=== PATIENT | female | born 1945 | race Caucasian/White ===

== ENCOUNTER 2023-05-21 10:12 | Emergency (ER) | payer MEDICARE, OTHER, SELFPAY ==
[2023-05-21] VITALS (17 sets, daily range): BP systolic 88–154; BP diastolic 53–104; BMI 28.2
[2023-05-21 10:38] LABS: % Basophils 1.1 % (0-2); % Eosinophils 6.5 % (0-6); % Immature Granulocytes 0.2 % (0-0.5); % Lymphocytes 21.7 % (20.5-51.1); % Monocytes 13.9 % (1.7-9.3); % Neutrophils 56.6 % (42.2-75.2); Absolute Basophils 0.1 10^3/uL (0-0.2); Absolute Eosinophils 0.3 10^3/uL (0-0.7); Absolute Monocytes 0.6 10^3/uL (0.1-0.6); Absolute Neutrophils 2.5 10^3/uL (1.4-6.5); Hemoglobin 12.4 g/dL (12.0-16.0); Mean Corp Hgb Conc. 34.4 g/dL (33.0-37.0); Mean Corpuscular Volume 95.7 fL (81.0-99.0); Mean Platelet Volume 9.3 fL (7.4-10.4); Nucleated Red Blood Cells % 0 %; Platelet Count 227 10^3/uL (130-400); Red Blood Cell Count 3.76 10^6/uL (4.20-5.40); Red Cell Dist. Width 12.6 % (11.5-14.5); White Blood Cell Count 4.5 10^3/uL (4.8-10.8)
[2023-05-21 11:00] LABS: Troponin I < 0.012 ng/ml
[2023-05-21 11:02] LABS: ALT (SGPT) 32 U/L (0-35); AST (SGOT) 32 U/L (14-36); Albumin 4.5 g/dl (3.5-5.0); Alkaline Phosphatase 88 U/L (38-126); Blood Urea Nitrogen 31 mg/dl (7-17); Calcium 9.3 mg/dl (8.4-10.2); Carbon Dioxide 27 mmol/L (22-30); Chloride 101 mmol/L (98-107); Glucose 109 mg/dl (70-99); Potassium 4.5 mmol/L (3.5-5.1); Sodium 134 mmol/L (135-145); Total Bilirubin 0.9 mg/dl (0.2-1.3); Total Protein 7.1 g/dl (6.3-8.2); eGFR 36.12
--- NOTE | 2023-05-21 11:55 | ED.GENMED ---
History of Present Illness
<Linda Acevedo PA-C - Last Filed: 05/21/23 15:07>
General
Chief Complaint: Heart Rate Problem
Source: patient
Exam Limitations: none
Time Seen by Provider: 05/21/23 11:32
Nursing documentation reviewed up to this point in time: agreed with
Travel History
Have you had any contact with someone who has COVID-19?: No
Do you have any symptoms of coronavirus? Fever > 100 degrees, chills, cough, shortness of breath, sore throat, loss of taste or smell, muscle aches, or headache?: No
History of Present Illness
History of Present Illness:
77 y/o F with h/o PAF on xarelto, anxiety, HF with preserved ef
here with palpitations notice dlas tnight, subtle
then this morning pt says her hr is higher htndaniel gonzáles (50) and was 80s today and felt irregular and her BP is up
she feels c/w previous ep[isodes of afib
mild lightheadedness with standing
mild WOODALL
no cp
no edema
requesting cardioversion
Past History
<Linda Acevedo PA-C - Last Filed: 05/21/23 15:07>
Past History
ED Past Medical History: Arrthythmia, CHF and HTN
Social History
Tobacco: Non-smoker
Alcohol: None
Review of Systems
<MICHELLE Hernandez Last Filed: 05/21/23 15:07>
Review of Systems
Allergies reviewed?: Yes
All Other Systems: Not applicable
Phy Exam
<MICHELLE Hernandez Last Filed: 05/21/23 15:07>
Physical Exam
Physical Exam:
GENERAL: Alert , in no apparent distress, very well appearing
EYE: pupils equal and reactive
NECK: Supple
ENT: o/p clr, mmm.
CARDIAC: irregular, no edema in legs; rate 80s; no obvious murmur
LUNGS: Clear breath sounds bilaterally, no acute respiratory distress, no wheezes/rales/rhonchi
ABDOMEN: Soft, without focal tenderness, no r/g, no cvat, normal bowel sounds
NEUROLOGICAL: Alert and oriented, no focal neuro deficits
SKIN: Warm and dry, skin intact.
MUSCULOSKELETAL: No edema, well perfused. neg kristi's sign
PSYCH: Normal and appropriate interaction.
Course
<Linda Acevedo PA-C - Last Filed: 05/21/23 15:07>
Orders/Labs/Results
Orders:
Orders
05/21/23 10:16
EKG [Electrocardiogram (*1)] Urgent
Reason for Study: Atrial Fibrillation
EKG- Treatment ONCE
05/21/23 10:27
Complete Blood Count/With Diff Urgent
Comprehensive Metabolic Panel Urgent
Troponin I Urgent
05/21/23 11:55
CR Chest - 2 Views Urgent
Comment:
Reason For Exam: afib
05/21/23 13:30
Propofol [Diprivan] 20 ml .ROUTE .STK-MED
05/21/23 14:00
EKG [Electrocardiogram (*1)] Urgent
Reason for Study: Atrial Fibrillation
EKG- Treatment ONCE
Abnormal Lab Results
05/21/23
10:27
WBC 4.5 L 10^3/uL
(4.8-10.8)
RBC 3.76 L 10^6/uL
(4.20-5.40)
Hct 36.0 L %
(37.0-47.0)
MCH 33.0 H pg
(27.0-31.0)
Absolute Lymphs (auto) 1.0 L 10^3/uL
(1.2-3.4)
Monocytes % 13.9 H %
(1.7-9.3)
Eosinophils % 6.5 H %
(0-6)
Sodium 134 L mmol/L
(135-145)
BUN 31 H mg/dl
(7-17)
Creatinine 1.5 H mg/dL
(0.6-1.0)
Glucose 109 H mg/dl
(70-99)
05/21/23 10:27
05/21/23 10:27
Vital Signs
Initial and Last Documented VS:
Initial Vital Signs
Temp Pulse Resp BP Pulse Ox
98.1 F 89 16 154/104 99
05/21/23 10:20 05/21/23 10:20 05/21/23 10:20 05/21/23 10:20 05/21/23 10:20
Last Documented Vital Signs
Temp Pulse Resp BP Pulse Ox
98.7 F 53 8 131/66 97
05/21/23 14:06 05/21/23 15:00 05/21/23 15:00 05/21/23 15:00 05/21/23 15:13
<Ashok Hazel, DO - Last Filed: 05/21/23 15:25>
Orders/Labs/Results
Orders:
Orders
05/21/23 10:16
EKG [Electrocardiogram (*1)] Urgent
Reason for Study: Atrial Fibrillation
EKG- Treatment ONCE
05/21/23 10:27
Complete Blood Count/With Diff Urgent
Comprehensive Metabolic Panel Urgent
Troponin I Urgent
05/21/23 11:55
CR Chest - 2 Views Urgent
Comment:
Reason For Exam: afib
05/21/23 13:30
Propofol [Diprivan] 20 ml .ROUTE .STK-MED
05/21/23 14:00
EKG [Electrocardiogram (*1)] Urgent
Reason for Study: Atrial Fibrillation
EKG- Treatment ONCE
Abnormal Lab Results
05/21/23
10:27
WBC 4.5 L 10^3/uL
(4.8-10.8)
RBC 3.76 L 10^6/uL
(4.20-5.40)
Hct 36.0 L %
(37.0-47.0)
MCH 33.0 H pg
(27.0-31.0)
Absolute Lymphs (auto) 1.0 L 10^3/uL
(1.2-3.4)
Monocytes % 13.9 H %
(1.7-9.3)
Eosinophils % 6.5 H %
(0-6)
Sodium 134 L mmol/L
(135-145)
BUN 31 H mg/dl
(7-17)
Creatinine 1.5 H mg/dL
(0.6-1.0)
Glucose 109 H mg/dl
(70-99)
05/21/23 10:27
05/21/23 10:27
Vital Signs
Initial and Last Documented VS:
Initial Vital Signs
Temp Pulse Resp BP Pulse Ox
98.1 F 89 16 154/104 99
05/21/23 10:20 05/21/23 10:20 05/21/23 10:20 05/21/23 10:20 05/21/23 10:20
Last Documented Vital Signs
Temp Pulse Resp BP Pulse Ox
98.7 F 53 8 131/66 97
05/21/23 14:06 05/21/23 15:00 05/21/23 15:00 05/21/23 15:00 05/21/23 15:13
Procedures
<Linda Acevedo PA-C - Last Filed: 05/21/23 15:07>
Cardioversion
Indication:: Afib
Performed by:: ashok hazel
Synchronized?: Yes
Energy Used: 150 joules
Number of attempts: 1
Successful?: Yes
Complications: none
ASA Risk Score: Class I
Any reaction or bad outcome to prior sedation/anesthesia?: No history of a reaction
Sedation level to be attained: moderate
Chart and allergies reviewed: Yes
Patient reassessed prior to sedation: Yes
Time out completed at (validating right patient & procedure): 13:56
History of difficult intubation: No
Airway free of obstruction: Yes
Patient has a gag reflex: Yes
Patient is able to open mouth: Yes
Patient has no dentures: Yes
Patient has no loose teeth: Yes
Medication administered by Provider during Moderate Sedation: IV Propofol (mg)
Total dose administered: 80
Time drug administered: 13:56
Start Time: 13:56
Stop Time: 14:06
<Linda Acevedo PA-C - Last Filed: 05/21/23 15:07>
MDM/Problems Addressed
Differential Diagnosis Includes:
afib, palpitations/pacs/pvcs
MDM/Problems Addressed:
77 y/O F
with h/o PAF on xarelto
here with feeling palptiations since last night, similar to previous episodes of a fib
she was in Sinus 5 days ago
pt has a little lightheadedness with exertion
no chest pain, fever, chills, vomiting, nausea, syncope
she is well apeparing
with rate controlled a fib in the 80s
no signs of HF
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 waddell
recommended ER cardioversion
pt consented
1500 - pot cardioverted out of afib
sinus abdulaziz with nonsepcific st changes, 1st degree block
very simliar to old ekg
able to tolerate po crackers, water
d/c home.
<Linda Acevedo PA-C - Last Filed: 05/21/23 15:07>
*Critical Care Note
Total Time (30-74mins, 75-104mins- exclusive of procedures): Not Applicable
ED Attending Note
<Linda Acevedo PA-C - Last Filed: 05/21/23 15:07>
-
Portions of this chart may have been created with voice recognition software.� Occasional wrong word or��sound alike� substitutions may have occurred due to the inherent limitations of voice recognition software.
<Ashok Hazel DO - Last Filed: 05/21/23 15:25>
ED Attending Note
Patient seen and examined by attending physician: Yes
I performed the substantive portion of visit, reviewed & personally made and approve the management plan that is documented in note by myself or ABRAHAM.: Yes
ED Attending Note:
I have reviewed and agree with history and treatment plan by Maria G Acevedo. My exam revealed 77-year-old female in rate controlled atrial fibrillation. Patient tolerated sedation and cardioversion well. She is now in sinus bradycardia 54. Stable
for discharge.
Discharge Plan
Departure
Patient Disposition: Home (Routine Discharge)
Date of Disposition: 05/21/23
Time of Disposition: 15:03
Patient with high blood pressure during this ER visit?: No
Condition: Fair
Covid-19: Not Applicable
Discharge Problem:
Paroxysmal A-fib, Dehydration
Instructions: Atrial Fibrillation (DC), Dehydration, Adult (DC), Moderate Sedation in Adults (DC)
Prescriptions:
No Action
cetirizine 10 MG tablet
10 mg PO DAILY
alprazolam 0.25 MG tablet
0.25 mg PO PRN PRN (Reason: anxiety)
timolol maleate 1 DROP drops
1 drp BOTH EYES BID
rivaroxaban [Xarelto] 20 MG tablet
20 mg PO QPM
Multivitamin
1 tab PO DAILY
valacyclovir [Valtrex] 1,000 MG tablet
1,000 mg PO TID
metoprolol succinate 50 MG tablet extended release 24 hr
50 mg PO BID
furosemide 20 MG tablet
20 mg PO DAILY Qty: 30 11RF
losartan 25 MG tablet
50 mg PO QPM Qty: 30 0RF
Rx Instructions:
Take losartan (Cozaar) 50 mg once a day
Referrals:
Job Cifuentes MD [Family Provider] - Follow up in 2-3 days
Ashok Jara DO [Active] - Follow up in 5-7 days
Activity Restrictions/Additional Instructions:
YOU HAD A CARDIOVERSION OUT OF A FIB TODAY
YOU WERE A LITTLE DEHYDRATED TODAY, WE GAVE YOU FLUIDS
FOLLOW UP WITH YOUR CYBER TRANSPORT SYSTEMS SPECIALIST, CALL FOR AN APPOINTMENT
CONTINUE YOUR XARELTO
RETURN FOR: SEVERE SYMPTOMS, PASSING OUT, WORSENING AFIB OR ANY CONCENRS.
Interventions
Interventions:
*Risk Screen - Suicide Last Done: 05/21/23 10:20
*General Assessment Last Done: 05/21/23 10:20
*Neglect/Abuse Screening Last Done: 05/21/23 10:20
ED- Fall Risk Assessment Last Done: 05/21/23 13:47
*ED COVID-19 Vaccine History Last Done: 05/21/23 13:47
ED- Cardiac Assessment Last Done: 05/21/23 13:47
ED- Pulmonary Assessment Last Done: 05/21/23 13:47
--- NOTE | 2023-05-21 14:02 | EDRN ---
PT CARDIOVERTED BY MD GEIGER AND LINNETTE SANCHEZ. 50MG IVP ADMINISTERED @ 1356, 30 MG IVP ADMINISTERED @ 1357. PT CARDIOVERTED WITH 150 J @ 1358. PT TOLERATED WELL.
== END 2023-05-21 15:57 | disposition home or self-care (01) ==
LOC: EMR 10:12
PROVIDERS: Emergency Medicine; EMERGENCY PHYSICIAN Emergency Medicine; FAMILY PHYSICIAN Internal Medicine
DX: I48.0 Paroxysmal atrial fibrillation (principal); R06.09 Other forms of dyspnea; E86.0 Dehydration; F41.9 Anxiety disorder, unspecified; I11.0 Hypertensive heart disease with heart failure; I50.9 Heart failure, unspecified; Z79.01 Long term (current) use of anticoagulants; Z91.048 Other nonmedicinal substance allergy status
CPT/HCPCS: 99285; 92960; 99152; 71046; 80053; 84484; 85025; 93005

== ENCOUNTER 2023-07-10 10:50 | Emergency (ER) | payer MEDICARE, OTHER, SELFPAY ==
[2023-07-10] VITALS (14 sets, daily range): BP systolic 94–140; BP diastolic 52–89
[2023-07-10 11:28] LABS: % Basophils 0.9 % (0-2); % Eosinophils 4.1 % (0-6); % Immature Granulocytes 0.4 % (0-0.5); % Lymphocytes 22.1 % (20.5-51.1); % Monocytes 10.3 % (1.7-9.3); % Neutrophils 62.2 % (42.2-75.2); Absolute Basophils 0.1 10^3/uL (0-0.2); Absolute Eosinophils 0.2 10^3/uL (0-0.7); Absolute Lymphocytes 1.2 10^3/uL (1.2-3.4); Absolute Monocytes 0.6 10^3/uL (0.1-0.6); Absolute Neutrophils 3.5 10^3/uL (1.4-6.5); Hematocrit 37.7 % (37.0-47.0); Hemoglobin 12.6 g/dL (12.0-16.0); Mean Corp Hgb Conc. 33.4 g/dL (33.0-37.0); Mean Corpuscular Hgb 32.1 pg (27.0-31.0); Mean Corpuscular Volume 96.2 fL (81.0-99.0); Mean Platelet Volume 9.7 fL (7.4-10.4); Nucleated Red Blood Cells % 0 %; Platelet Count 236 10^3/uL (130-400); Red Blood Cell Count 3.92 10^6/uL (4.20-5.40); Red Cell Dist. Width 12.7 % (11.5-14.5); White Blood Cell Count 5.6 10^3/uL (4.8-10.8)
[2023-07-10 11:34] LABS: INR 2.75; PT 29.5 Sec (11.4-14.6)
[2023-07-10 11:42] LABS: Troponin I < 0.012 ng/ml
[2023-07-10 11:52] LABS: ALT (SGPT) 46 U/L (0-35); AST (SGOT) 42 U/L (14-36); Albumin 4.8 g/dl (3.5-5.0); Alkaline Phosphatase 96 U/L (38-126); Blood Urea Nitrogen 40 mg/dl (7-17); Calcium 9.1 mg/dl (8.4-10.2); Carbon Dioxide 26 mmol/L (22-30); Chloride 102 mmol/L (98-107); Glucose 110 mg/dl (70-99); Sodium 134 mmol/L (135-145); Total Bilirubin 1.1 mg/dl (0.2-1.3); Total Protein 7.2 g/dl (6.3-8.2); eGFR 30.89
--- NOTE | 2023-07-10 12:34 | ED.GENMED ---
History of Present Illness
<Lalo Tom Jr., PA-C - Last Filed: 07/10/23 15:00>
General
Chief Complaint: Heart Rate Problem
Source: patient
Exam Limitations: none
Time Seen by Provider: 07/10/23 12:03
Nursing documentation reviewed up to this point in time: agreed with
Travel History
Have you had any contact with someone who has COVID-19?: No
Do you have any symptoms of coronavirus? Fever > 100 degrees, chills, cough, shortness of breath, sore throat, loss of taste or smell, muscle aches, or headache?: No
History of Present Illness
History of Present Illness:
78-year-old female with past medical history of paroxysmal atrial fibrillation, CHF hypertension presenting to the emergency department today with concerns of being in atrial fibrillation likely starting last night as she claims that her heart rate
seem to be elevated last night. Last was in A-fib 2 months ago and was cardioverted here. Does take Xarelto has not missed any doses and also takes metoprolol daily.
Past History
<Lalo Tom Jr., PA-C - Last Filed: 07/10/23 15:00>
Past History
ED Past Medical History: Arrthythmia, CHF and HTN
Social History
Tobacco: Non-smoker
Alcohol: None
Review of Systems
<Lalo Tom Jr., PA-C - Last Filed: 07/10/23 15:00>
Review of Systems
Allergies reviewed?: Yes
All Other Systems: ROS reviewed and negative except as documented in HPI and ROS
Phy Exam
<Lalo Tom Jr., PA-C - Last Filed: 07/10/23 15:00>
Physical Exam
Physical Exam:
GENERAL: Alert , in no apparent distress
EYE: pupils equal and reactive
NECK: Supple, no significant adenopathy.
ENT: o/p clr, mmm.
CARDIAC: Irregularly irregular
LUNGS: Clear breath sounds bilaterally, no acute respiratory distress, no wheezes/rales/rhonchi
ABDOMEN: Soft, without focal tenderness, no r/g, no cvat
NEUROLOGICAL: Alert and oriented, no focal neuro deficits
SKIN: Warm and dry, skin intact.
MUSCULOSKELETAL: No edema, well perfused.
PSYCH: Normal and appropriate interaction.
Course
<Lalo Tom Jr., PA-C - Last Filed: 07/10/23 15:00>
Orders/Labs/Results
Orders:
Orders
07/10/23 10:52
Electrocardiogram (*1) Urgent
Reason for Study: Atrial Fibrillation
EKG- Treatment ONCE
07/10/23 11:05
Complete Blood Count/With Diff Urgent
Comprehensive Metabolic Panel Urgent
PT/INR [Prothrombin Time] Urgent
Troponin I Urgent
07/10/23 12:42
Propofol [Diprivan] 20 ml .ROUTE .STK-MED
Abnormal Lab Results
07/10/23
11:05
RBC 3.92 L 10^6/uL
(4.20-5.40)
MCH 32.1 H pg
(27.0-31.0)
Monocytes % 10.3 H %
(1.7-9.3)
PT 29.5 H Sec
(11.4-14.6)
Sodium 134 L mmol/L
(135-145)
BUN 40 H mg/dl
(7-17)
Creatinine 1.7 H mg/dL
(0.6-1.0)
Glucose 110 H mg/dl
(70-99)
AST 42 H U/L
(14-36)
ALT 46 H U/L
(0-35)
07/10/23 11:05
07/10/23 11:05
Vital Signs
Initial and Last Documented VS:
Initial Vital Signs
Temp Pulse Resp BP Pulse Ox
98.5 F 87 18 133/85 98
07/10/23 10:57 07/10/23 10:57 07/10/23 10:57 07/10/23 10:57 07/10/23 10:57
Last Documented Vital Signs
Temp Pulse Resp BP Pulse Ox
97.8 F 60 18 110/63 97
07/10/23 14:28 07/10/23 14:28 07/10/23 14:28 07/10/23 14:28 07/10/23 14:28
<Doyle Mcmullen MD - Last Filed: 07/10/23 14:22>
Orders/Labs/Results
Orders:
Orders
07/10/23 10:52
Electrocardiogram (*1) Urgent
Reason for Study: Atrial Fibrillation
EKG- Treatment ONCE
07/10/23 11:05
Complete Blood Count/With Diff Urgent
Comprehensive Metabolic Panel Urgent
PT/INR [Prothrombin Time] Urgent
Troponin I Urgent
07/10/23 12:42
Propofol [Diprivan] 20 ml .ROUTE .STK-MED
Abnormal Lab Results
07/10/23
11:05
RBC 3.92 L 10^6/uL
(4.20-5.40)
MCH 32.1 H pg
(27.0-31.0)
Monocytes % 10.3 H %
(1.7-9.3)
PT 29.5 H Sec
(11.4-14.6)
Sodium 134 L mmol/L
(135-145)
BUN 40 H mg/dl
(7-17)
Creatinine 1.7 H mg/dL
(0.6-1.0)
Glucose 110 H mg/dl
(70-99)
AST 42 H U/L
(14-36)
ALT 46 H U/L
(0-35)
07/10/23 11:05
07/10/23 11:05
Vital Signs
Initial and Last Documented VS:
Initial Vital Signs
Temp Pulse Resp BP Pulse Ox
98.5 F 87 18 133/85 98
07/10/23 10:57 07/10/23 10:57 07/10/23 10:57 07/10/23 10:57 07/10/23 10:57
Last Documented Vital Signs
Temp Pulse Resp BP Pulse Ox
97.8 F 60 18 110/63 97
07/10/23 14:28 07/10/23 14:28 07/10/23 14:28 07/10/23 14:28 07/10/23 14:28
Procedures
<Lalo Tom Jr., PA-C - Last Filed: 07/10/23 15:00>
Cardioversion
Indication:: Afib
Performed by:: Dr. Mcmullen myself
Synchronized?: Yes
Energy Used: 150 joules
Number of attempts: 1
Successful?: Yes
Complications: None
ASA Risk Score: Class II
Any reaction or bad outcome to prior sedation/anesthesia?: No history of a reaction
Sedation level to be attained: moderate (Propofol)
Chart and allergies reviewed: Yes
Patient reassessed prior to sedation: Yes
Time out completed at (validating right patient & procedure): 13:48
History of difficult intubation: No
Airway free of obstruction: Yes
Patient has a gag reflex: Yes
Patient is able to open mouth: Yes
Patient has no dentures: Yes
Patient has no loose teeth: Yes
Medication administered by Provider during Moderate Sedation: IV Propofol (mg) (70)
Total dose administered: 70
Time drug administered: 13:48
Start Time: 13:48
Stop Time: 13:59
<Lalo Tom Jr., PA-C - Last Filed: 07/10/23 15:00>
MDM/Problems Addressed
MDM/Problems Addressed:
78-year-old female presenting to the emergency department today with concerns of atrial fibrillation since last night does have paroxysmal A-fib currently anticoagulated with Xarelto and taking metoprolol. She came in requesting cardioversion.
Minimal symptoms at this time other than some lightheadedness and fatigue. Denies any changes in medications. Plan to cardiovert. This was performed successfully without complication. Patient observed here for 1 hour after procedure. Patient
with no ongoing symptoms feels well able to stand up and walk able to drink
<Lalo Tom Jr., PA-C - Last Filed: 07/10/23 15:00>
*Critical Care Note
Total Time (30-74mins, 75-104mins- exclusive of procedures): Not Applicable
ED Attending Note
<Lalo Tom Jr., PA-C - Last Filed: 07/10/23 15:00>
-
Portions of this chart may have been created with voice recognition software.� Occasional wrong word or��sound alike� substitutions may have occurred due to the inherent limitations of voice recognition software.
<Doyle Mcmullen MD - Last Filed: 07/10/23 14:22>
ED Attending Note
Patient seen and examined by attending physician: Yes
I performed the substantive portion of visit, reviewed & personally made and approve the management plan that is documented in note by myself or ABRAHAM.: Yes
ED Attending Note:
Patient felt she went into atrial fibrillation last evening. Minimal symptoms. No chest pain shortness of breath or syncope. Faithful with her medications Scheduled for ablation in August.
On exam patient is nontoxic in no distress. Minimally irregular rate and rhythm. No murmur. Lungs clear and equal. Airway clear. Warm and dry perfusing well.
Initial EKG showed atrial fibrillation.
Lengthy discussion on management. Very reasonable to continue rate control anticoagulation and follow-up however patient very much wants cardioversion. Risk benefits explained. Cardioverted with 150 J. 70 mg of propofol. No complications.
Repeat EKG sinus bradycardia at 45. Left axis deviation low voltage
Discharge Plan
Departure
Patient Disposition: Home (Routine Discharge)
Date of Disposition: 07/10/23
Time of Disposition: 14:58
Patient with high blood pressure during this ER visit?: No
Condition: Good
Covid-19: Not Applicable
Discharge Problem:
Atrial fibrillation
Instructions: Atrial Fibrillation (DC)
Prescriptions:
No Action
cetirizine 10 MG tablet
10 mg PO DAILY
alprazolam 0.25 MG tablet
0.25 mg PO PRN PRN (Reason: anxiety)
timolol maleate 1 DROP drops
1 drp BOTH EYES BID
rivaroxaban [Xarelto] 20 MG tablet
20 mg PO QPM
Multivitamin
1 tab PO DAILY
valacyclovir [Valtrex] 1,000 MG tablet
1,000 mg PO TID
metoprolol succinate 50 MG tablet extended release 24 hr
50 mg PO BID
furosemide 20 MG tablet
20 mg PO DAILY Qty: 30 11RF
losartan 25 MG tablet
50 mg PO QPM Qty: 30 0RF
Rx Instructions:
Take losartan (Cozaar) 50 mg once a day
Referrals:
Job Cifuentes MD [Family Provider] -
Brock Cano MD [Active] -
Activity Restrictions/Additional Instructions:
You came to the emergency department today with concerns of atrial fibrillation. Here you were cardioverted back to normal sinus rhythm. Please follow closely with your film casting operator and compliance review specialist. Return to the emergency department any
worsening, new or concerning symptoms.
Interventions
Interventions:
*Risk Screen - Suicide Last Done: 07/10/23 10:57
*General Assessment Last Done: 07/10/23 10:57
*Neglect/Abuse Screening Last Done: 07/10/23 10:57
ED- Fall Risk Assessment Last Done: 07/10/23 12:00
*ED COVID-19 Vaccine History Last Done: 07/10/23 10:57
ED- Cardiac Assessment Last Done: 07/10/23 12:00
ED- Pulmonary Assessment Last Done: 07/10/23 12:00
== END 2023-07-10 15:26 | disposition home or self-care (01) ==
LOC: EMR 10:50
PROVIDERS: EMERGENCY PHYSICIAN Emergency Medicine; FAMILY PHYSICIAN Internal Medicine
DX: I48.91 Unspecified atrial fibrillation (principal); I11.0 Hypertensive heart disease with heart failure; I50.9 Heart failure, unspecified; Z79.01 Long term (current) use of anticoagulants
CPT/HCPCS: 99283; 92960; 80053; 84484; 85025; 85610; 93005

== ENCOUNTER 2023-08-30 10:04 | Emergency (ER) | payer MEDICARE, OTHER, SELFPAY ==
[2023-08-30 10:22] VITALS: BP 143/84
[2023-08-30 11:25] LABS: % Immature Granulocytes 0.6 % (0-0.5); % Lymphocytes 3.9 % (20.5-51.1); % Monocytes 2.3 % (1.7-9.3); % Neutrophils 93.2 % (42.2-75.2); Absolute Immature Granulocytes 0.1 10^3/uL (0-0.05); Absolute Lymphocytes 0.4 10^3/uL (1.2-3.4); Absolute Monocytes 0.2 10^3/uL (0.1-0.6); Absolute Neutrophils 8.8 10^3/uL (1.4-6.5); Hematocrit 32.4 % (37.0-47.0); Hemoglobin 11.2 g/dL (12.0-16.0); Mean Corp Hgb Conc. 34.6 g/dL (33.0-37.0); Mean Corpuscular Hgb 32.7 pg (27.0-31.0); Mean Corpuscular Volume 94.5 fL (81.0-99.0); Mean Platelet Volume 9.5 fL (7.4-10.4); Nucleated Red Blood Cells % 0 %; Platelet Count 236 10^3/uL (130-400); Red Blood Cell Count 3.43 10^6/uL (4.20-5.40); Red Cell Dist. Width 13.4 % (11.5-14.5); White Blood Cell Count 9.5 10^3/uL (4.8-10.8)
[2023-08-30 11:41] LABS: ALT (SGPT) 22 U/L (0-35); AST (SGOT) 27 U/L (14-36); Albumin 4.4 g/dl (3.5-5.0); Alkaline Phosphatase 64 U/L (38-126); Blood Urea Nitrogen 36 mg/dl (7-17); Calcium 9.8 mg/dl (8.4-10.2); Carbon Dioxide 23 mmol/L (22-30); Chloride 101 mmol/L (98-107); Glucose 137 mg/dl (70-99); Potassium 4.3 mmol/L (3.5-5.1); Total Bilirubin 0.7 mg/dl (0.2-1.3); Total Protein 6.6 g/dl (6.3-8.2); eGFR 38.99
[2023-08-30 12:08] LABS: Magnesium 2.8 mg/dl (1.6-2.3); Sodium 133 mmol/L (135-145)
--- NOTE | 2023-08-30 13:15 | ED.GENMED ---
History of Present Illness
General
Chief Complaint: Heart Rate Problem
Source: patient and family
Time Seen by Provider: 08/30/23 11:02
Travel History
Have you had any contact with someone who has COVID-19?: No
Do you have any symptoms of coronavirus? Fever > 100 degrees, chills, cough, shortness of breath, sore throat, loss of taste or smell, muscle aches, or headache?: No
History of Present Illness
History of Present Illness:
78-year-old female who presents for evaluation of noted irregular heartbeat on home monitoring. Patient states 'I think I wasted your time'. She states she feels fine. Noted to be in sinus rhythm on arrival. The patient denies chest pain or
shortness of breath and states she never feels when she is in A-fib. She is scheduled for an ablation upcoming.
Past History
Past History
ED Past Medical History: Arrthythmia, CHF, HTN, Valvular disease and Other (Renal insufficiency, cataracts, glaucoma)
Social History
Tobacco: Non-smoker
Alcohol: None
Phy Exam
Physical Exam
Physical Exam:
CONSTITUTIONAL Patient alert and oriented to person, place and time. Well-appearing. Vital signs reviewed.
HEAD atraumatic, normocephalic.
EYES eyelids normal to inspection, Extraocular muscles intact, Conjunctiva normal, Sclera normal.
NECK normal range of motion, Trachea midline, no jugular venous distention.
RESPIRATORY CHEST No respiratory distress noted, Chest expansion equal, Bilateral breath sounds clear.
CARDIOVASCULAR regular and bradycardic.
BACK normal inspection, no obvious deformities
UPPER EXTREMITY range of motion normal, Motor strength normal, no cyanosis, no edema.
LOWER EXTREMITY range of motion normal, Motor strength normal, no cyanosis, no edema.
NEURO Speech normal, No focal motor deficits, [place] coma scale 15, Memory normal, Cranial Nerves intact to screening exam.
SKIN skin warm, dry, and normal in color.
PSYCHIATRIC patient oriented to person place and time, Normal affect.
Course
Orders/Labs/Results
Orders:
Orders
08/30/23 10:19
EKG [Electrocardiogram (*1)] Urgent
Reason for Study: Atrial Fibrillation
EKG- Treatment ONCE
08/30/23 11:19
Complete Blood Count/With Diff Urgent
Comprehensive Metabolic Panel Urgent
Magnesium Urgent
Comment: ADD ON
08/30/23 11:30
Add On- LAB Urgent
Tests Added?: magnesium
Abnormal Lab Results
08/30/23
11:19
RBC 3.43 L 10^6/uL
(4.20-5.40)
Hgb 11.2 L g/dL
(12.0-16.0)
Hct 32.4 L %
(37.0-47.0)
MCH 32.7 H pg
(27.0-31.0)
Abs Immat Gran (auto) 0.1 H 10^3/uL
(0-0.05)
Absolute Neuts (auto) 8.8 H 10^3/uL
(1.4-6.5)
Absolute Lymphs (auto) 0.4 L 10^3/uL
(1.2-3.4)
Immature Gran % 0.6 H %
(0-0.5)
Neutrophils % 93.2 H %
(42.2-75.2)
Lymphocytes % 3.9 L %
(20.5-51.1)
Sodium 133 L mmol/L
(135-145)
BUN 36 H mg/dl
(7-17)
Creatinine 1.4 H mg/dL
(0.6-1.0)
Glucose 137 H mg/dl
(70-99)
Magnesium 2.8 H mg/dl
(1.6-2.3)
08/30/23 11:19
08/30/23 11:19
Vital Signs
Initial and Last Documented VS:
Initial Vital Signs
Temp Pulse Resp BP Pulse Ox
98.1 F 63 16 143/84 97
08/30/23 10:22 08/30/23 10:22 08/30/23 10:22 08/30/23 10:22 08/30/23 10:22
Last Documented Vital Signs
Temp Pulse Resp BP Pulse Ox
98.1 F 63 16 143/84 98
08/30/23 10:22 08/30/23 10:22 08/30/23 10:22 08/30/23 10:22 08/30/23 11:11
MDM/Problems Addressed
MDM/Problems Addressed:
Paroxysmal atrial fibrillation
*Pulse Oximetry
Patient hypoxic: no
*EKG
Interpreted by ED Provider?: Yes
Interpretation: abnormal
Rate: bradycardiac
Rhythm: sinus
[place]: normal axis
Ischemia: non-specific ST changes
*Attendance Officer Interpretation
Rate: bradycardiac
Interpretation: abnormal
Rhythm: sinus
*Critical Care Note
Total Time (30-74mins, 75-104mins- exclusive of procedures): Not Applicable
Data Reviewed
Review of Other/Old Records Reveals: Discharge Summary (From February 2021)
Source: patient and family
Prescriptions/Medications Considered But Not Given:
Considered rate control with patient bradycardic and sinus
Patient Management
Escalation/DeEscalation of care consider admission/obs:
Patient has follow-up with cardiology and planned ablation. Okay for discharge
ED Attending Note
-
Portions of this chart may have been created with voice recognition software.� Occasional wrong word or��sound alike� substitutions may have occurred due to the inherent limitations of voice recognition software.
Discharge Plan
Departure
Patient Disposition: Home (Routine Discharge)
Date of Disposition: 08/30/23
Time of Disposition: 13:21
Patient with high blood pressure during this ER visit?: Yes
Discharge Problem:
AF (paroxysmal atrial fibrillation)
Instructions: Atrial Fibrillation (DC), BLOOD PRESSURE
Prescriptions:
No Action
cetirizine 10 MG tablet
10 mg PO DAILY
alprazolam 0.25 MG tablet
0.25 - 0.5 mg PO BIDPRN PRN (Reason: anxiety)
timolol maleate 1 DROP drops
1 drp BOTH EYES BID
Xarelto 20 MG tablet
20 mg PO QPM
metoprolol succinate 50 MG tablet extended release 24 hr
75 mg PO QPM
multivitamin Tablet
1 tab PO DAILY
losartan 50 mg Tablet
50 mg PO BID
atorvastatin 10 mg Tablet
10 mg PO QPM
amiodarone 200 mg Tablet
200 mg PO DAILY
levothyroxine 50 mcg Tablet
50 mcg PO DAILY
docusate sodium [Colace] 100 mg Capsule
100 mg PO BID
bumetanide [Bumex] 1 mg Tablet
1 mg PO BID
coQ10 (ubiquinol) 100 mg Capsule
100 mg PO QPM
dapagliflozin propanediol [Farxiga] 10 mg Tablet
10 mg PO DAILY
bisacodyl [Dulcolax (bisacodyl)] 5 mg Tablet,Delayed Release (Dr/Ec)
5 mg PO DAILYPRN PRN (Reason: constipation)
acyclovir 200 mg Capsule
200 mg PO DAILY
Referrals:
Job Cifuentes MD [Family Provider] -
Activity Restrictions/Additional Instructions:
Please follow-up with your wick tender as planned. Return immediately for worsening symptoms, vomiting chest pain, shortness of breath or any other concerns.
Interventions
Interventions:
*Risk Screen - Suicide Last Done: 08/30/23 10:24
*Neglect/Abuse Screening Last Done: 08/30/23 10:24
*ED COVID-19 Vaccine History Last Done: 08/30/23 10:24
ED- Cardiac Assessment Last Done: 08/30/23 11:11
ED- Pulmonary Assessment Last Done: 08/30/23 11:11
Discharge Date and Time
Print Language: SLOVAK
[2023-08-30 13:28] VITALS: BP 130/58
== END 2023-08-30 13:44 | disposition home or self-care (01) ==
LOC: EMR 10:04
PROVIDERS: EMERGENCY PHYSICIAN Emergency Medicine; FAMILY PHYSICIAN Internal Medicine; OTHER PHYSICIAN Internal Medicine Cardiovascular Disease
DX: I48.0 Paroxysmal atrial fibrillation (principal); I10 Essential (primary) hypertension
CPT/HCPCS: 99284; 80053; 83735; 85025; 93005

== ENCOUNTER → 2023-09-02 08:52 | Outpatient (REF) | payer MEDICARE, OTHER, SELFPAY ==
[2023-08-21 11:27] LABS: % Basophils 0.9 % (0-2); % Eosinophils 2.6 % (0-6); % Immature Granulocytes 0.4 % (0-0.5); % Lymphocytes 21.8 % (20.5-51.1); % Monocytes 13.8 % (1.7-9.3); % Neutrophils 60.5 % (42.2-75.2); Absolute Eosinophils 0.1 10^3/uL (0-0.7); Absolute Monocytes 0.6 10^3/uL (0.1-0.6); Absolute Neutrophils 2.8 10^3/uL (1.4-6.5); Hematocrit 33.8 % (37.0-47.0); Hemoglobin 11.3 g/dL (12.0-16.0); Mean Corp Hgb Conc. 33.4 g/dL (33.0-37.0); Mean Corpuscular Hgb 32.1 pg (27.0-31.0); Mean Platelet Volume 9.3 fL (7.4-10.4); Nucleated Red Blood Cells % 0 %; Platelet Count 219 10^3/uL (130-400); Red Blood Cell Count 3.52 10^6/uL (4.20-5.40); Red Cell Dist. Width 13.4 % (11.5-14.5); White Blood Cell Count 4.6 10^3/uL (4.8-10.8)
[2023-08-21 11:28] LABS: INR 2.42; PT 26.6 Sec (11.4-14.6)
[2023-08-21 13:26] LABS: ALT (SGPT) 42 U/L (0-35); AST (SGOT) 35 U/L (14-36); Albumin 4.5 g/dl (3.5-5.0); Alkaline Phosphatase 77 U/L (38-126); Blood Urea Nitrogen 33 mg/dl (7-17); Carbon Dioxide 29 mmol/L (22-30); Chloride 98 mmol/L (98-107); Glucose 101 mg/dl (70-99); Magnesium 2.8 mg/dl (1.6-2.3); Potassium 4.4 mmol/L (3.5-5.1); Sodium 134 mmol/L (135-145); Total Bilirubin 0.7 mg/dl (0.2-1.3); Total Protein 6.9 g/dl (6.3-8.2); eGFR 35.89
[2023-09-02 11:08] LABS: Magnesium 2.7 mg/dl (1.6-2.3)
== END ==
LOC: SDSPAT 08:52
PROVIDERS: ATTENDING PHYSICIAN Internal Medicine Cardiovascular Disease; FAMILY PHYSICIAN Internal Medicine; OTHER PHYSICIAN Internal Medicine Cardiovascular Disease; OTHER PHYSICIAN Physician Assistant
DX: I10 Essential (primary) hypertension (principal); I48.19 Other persistent atrial fibrillation; Z01.818 Encounter for other preprocedural examination
CPT/HCPCS: 36415; 80053; 83735; 85025; 85610; 86850; 86900; 86901; 93005

== ENCOUNTER 2023-09-04 10:31 | Day surgery (SDC) | payer MEDICARE, OTHER, SELFPAY ==
[2023-08-21 10:44] VITALS: BMI 27.0
--- NOTE | 2023-08-21 10:58 | HPS.HSE ---
Family Physician
-
Family Physician: NOT KNOW UNKNOWN - PT DOES
Chief Complaint
-
Recurrent atrial fibrillation.
History of Present Illness
The patient is a 78 year old female presenting today for recurrent atrial fibrillation. The patient reports significant palpitations, irregular heart rates, and shortness of breath with extreme exertion likely secondary to this diagnosis.
She has previously undergone multiple SHERRIE-guided cardioversions, the last occurring in June 2023, and pulmonary vein isolation in 2020 for her arrhythmia. She is on current pharmacological therapy with Metoprolol Succinate and Amiodarone. She has
been compliant with Xarelto nightly for oral anticoagulation. She notes that her symptoms associated with her arrhythmia greatly interfere with her activities of daily living and overall impact her quality of life. She is interested in pursuing
pulmonary vein isolation again for further arrhythmia management. She denies any current complaints today such as chest pain, shortness of breath, nausea, vomiting, diarrhea, lightheadedness, dizziness, cough, sore throat, or fever.
Medical History
Past Medical History
Past Medical History: Reports Other
Additional Past Medical History:
1. Recurrent atrial fibrillation, status post multiple SHERRIE-guided cardioversions and pulmonary vein isolation 2020; pharmacological therapy with Amiodarone and Metoprolol Succinate, oral anticoagulation with Xarelto.
2. Sinus bradycardia, medication induced.
3. Hypertension.
4. Chronic diastolic heart failure, preserved ejection fraction.
5. Moderate mitral regurgitation.
6. Moderate-severe tricuspid regurgitation.
7. Obstructive sleep apnea, compliant with CPAP.
8. Chronic kidney disease stage 3B.
9. Diverticulosis.
10. Osteoarthritis.
11. Hypothyroidism.
12. Mild anemia, likely secondary to chronic disease.
13. Glaucoma.
14. Anxiety.
15. Osteopenia.
16. Herpes simplex virus.
17. Mild leukopenia.
18. Chronic hyponatremia.
19. Chronic hypermagnesemia.
20. History of elevated transaminases.
Past Surgical History: Reports Other
Additional Past Surgical History:
1. Pulmonary vein isolation.
2. Cardioversion x5.
3. Transesophageal echocardiogram x2.
4. Right rotator cuff repair.
5. Left hammertoe correction.
6. Bilateral tubal ligation.
7. Dental implantation.
8. Bilateral cataract extraction.
9. Colonoscopy x2.
Social History
Tobacco: Non-smoker
Alcohol: Other (She, on average, drinks 1-2 glasses of wine 'most evenings'. )
Personal:
Living: Alone (in a 1 story home. )
Family History
Family History: Not pertinent
Allergies / Home Medications
Allergy/Medication List:
Home medications:
1. Acyclovir 200 mg p.o. daily.
2. Alprazolam 0.25-0.5 mg p.o. twice a day as needed.
3. Amiodarone 200 mg p.o. daily.
4. Atorvastatin 10 mg p.o. every evening.
5. Dulcolax 5 mg p.o. daily as needed.
6. Bumex 1 mg p.o. twice a day.
7. Cetirizine 10 mg p.o. daily.
8. CoQ10 100 mg p.o. every evening.
9. Farxiga 10 mg p.o. daily.
10. Colace 100 mg p.o. twice a day.
11. Levothyroxine 50 mcg p.o. daily.
12. Losartan 50 mg p.o. twice a day.
13. Metoprolol Succinate 75 mg p.o. every evening.
14. Multivitamin 1 tablet p.o. daily.
15. Timolol Maleate 1 drop both eyes twice a day.
16. Xarelto 20 mg p.o. every evening.
Allergies: Animal dander. Pollen. No known drug allergies.
Review of Systems
-
A 12 point ROS was completed and negative except as noted: Yes
Physical Exam
Vital Signs
Blood pressure 151/74. Heart rate 55. Respirations 18. Pulse ox 96%, increasing to 99% with encouraged deep breathing.
Height 5 feet, 3 inches. Weight 69 kg. BMI 26.9.
Physical Exam
General: Well Developed, Well Nourished and No Apparent Distress
HEENT: NormoCephalic, Moist mucous membranes, Atraumatic and PERRLA
Respiratory: Clear
Cardiac: Bradycardia
GI: Soft, Non Tender and Non Distended
Musculoskeletal: Normal Gait & Station
Skin: Warm and Dry
Neuro: AO x 3 and Nonfocal/grossly intact
Laboratory Results
-
DIAGNOSTIC STUDIES as of 08/21/2023: White blood cell count 4.6. Hemoglobin 11.3. Platelet count 219,000. PT 26.6. INR 2.42. Sodium 134. Potassium 4.4. BUN 33. Creatinine 1.5. Glucose 101. Calcium 9.0. Magnesium 2.8. AST 35. ALT 42. Albumin 4.5.
Blood type A positive.
DIAGNOSTIC STUDIES as of 09/02/2023: Magnesium 2.7.
EKG 08/21/2023: Sinus bradycardia with first degree AV block. Low voltage QRS. Non-specific ST abnormality.
Echocardiogram 09/13/2022: Normal left ventricular size, wall thickness and systolic function. No regional wall motion abnormalities are seen. The ejection fraction is estimated at 60%. Diastolic function appears to be indeterminate. Normal right
ventricular size and function. Severe left atrial enlargement. Moderately severe right atrial enlargement. Structurally normal mitral valve, mild thickening without significant stenosis with moderate regurgitation. Structurally normal aortic valve
without significant stenosis or regurgitation. Structurally normal tricuspid valve without significant stenosis with moderate-severe regurgitation. Estimated pulmonary artery pressure is 62 mmHg. Structurally normal pulmonic valve without
significant stenosis or regurgitation. Normal pericardium without effusion. Normal aortic root. The IVC appears to be mildly dilated.
Impression/Plan
-
IMPRESSION/PLAN:
1. Recurrent atrial fibrillation: The patient is in need of pulmonary vein isolation with Dr. Brock Cano on 09/04/2023. The benefits and risks of the procedure have been explained to the patient. The patient understands these risks and wishes to
proceed. She will not be required to undergo a pre-procedural transesophageal echocardiogram as she has been compliant with her oral anticoagulation. Her last dose of Xarelto will be the night prior to her procedure. She will hold Amiodarone 48
hours prior. She will take no medications the morning of her pulmonary vein isolation.
2. Chronic hypermagnesemia: Magnesium results discussed with both Dr. Cano and patient. The patient is a daily alcohol drinker and was advised to stop alcohol prior to her procedure date. She will be provided with normal saline intravenously
during her procedure for adequate hydration. She was also encouraged to follow up with her routine reel repairer, Dr. Tracy Avery, in the near future for further re-assessment. She, otherwise, is stable for her procedure on 09/04/2023.
[2023-09-04] VITALS (21 sets, daily range): BP systolic 102–170; BP diastolic 58–123; BMI 27.0
[2023-09-04] MEDS: NSS 500 IV (11:08)
[2023-09-04 14:28] LABS: ACT-LR - POC 300 Seconds (116-155)
[2023-09-04 14:43] LABS: ACT-LR - POC 355 Seconds (116-155)
--- NOTE | 2023-09-04 15:27 | ITS.CL.ABL ---
Maxillofacial Prosthetics Dentist - Ablation
Ablation
Procedure Report:
ELECTROPHYSIOLOGY ABLATION STUDY
DATE:: September 04, 2023 REFERRING: Dr. Ashok Jara
INDICATION: Paroxysmal supraventricular tachycardia in the form of atrial fibrillation.
HISTORY: See H and P. As above
ANTIARRHYTHMIC DRUG: Amiodarone
PRE-PROCEDURE SHERRIE: No atrial thrombus
PRESENTING RHYTHM: Sinus bradycardia
'TIME-OUT': called and confirmed.
SEDATION/ANESTHESIA: provided via the anesthesia department using general anesthesia (LMA).
INTRAVENOUS/ARTERIAL ACCESS:
Right femoral venous - 8Fr
Left femoral venous - 8 Fr, 6 Fr
Figure of 8 stitch bilateral venous access sites
Ultrasound guidance for bilateral femoral vein access was utilized by me to obtain access with demonstration of normal anatomy
CHADS-VASC Score:
HAS-Bled Score
PROCEDURE:
1. A decapolar CS catheter was placed within the CS for mapping and pacing. This was also used as the reference catheter for the 3-D map. The pulmonary veins were isolated at baseline.
2. The intracardiac ultrasound catheter was positioned in the RA to identify the FO for targeting of transseptal puncture, assist in identification of the pulmonary vein ostia, monitoring pre and post ablation pulmonary vein flow velocities,
monitoring for 'bubble' formation during RF application as a sign of thermal injury, and to monitor for pericardial effusion during mapping and ablation procedure. Left atrial size, LV ejection fraction, and pulmonary vein flows were monitored
pre and post ablation procedure. The other valves were inspected and found to be free of significant regurgitation or stenosis.
3. Half of the calculated heparin bolus was administered prior to the first transeptal puncture. Transseptal puncture was performed to diagnose RA and LA pressure so that safetey of LA mapping and ablation could be further assessed, and to access
the left atrium and pulmonary veins for mapping and ablation. This entailed advancing an 12 Frisian sheath dilator system into the superior vena cava and withdrawing both (monitoring intracardiac ultrasound, fluoroscopy and tip pressure) with the
tip oriented toward the atrial septum. The fossa ovalis was engaged (indicated by sudden displacement of the sheath tip as well as tenting of the fossa seen on intracardiac ultrasound). Left atrial access required a pass with the Brockenjosesitough
needle extended. The sheath was advanced over the dilator and positioned in the left atrium. The remainder of the calculated heparin bolus was administered and heparin was
infused to maintain ACT at 300 -350 seconds throughout the case.
4. RA pacing was performed via the proximal decapolar poles and LA pacing was performed via the distal decapolr poles.
5. A quadrapolar catheter was first positioned at the His position for His Bundle recording which was tagged via the 3-D Navex sytem, and then passed to the RVA for RV pacing and recording.
6. The pulsed light catheter was placed in each of the LIPV, LSPV, RSPV and the RIPV. The multipolar catheter was also placed in the left atrium with barrier procedure for previous mapping.
7. Next, a 3-D map was created using Navex. A 3-D reconstructed CT image was compared to the 3-D Navex map to assist in anatomic interpretation, mapping and ablation. The CT image and the NavX image were fused.
8. Pulmonary vein lesions were given at the sravanthi of the left veins. The posterior wall was isolated with a contiguous roof application and floor application as well as specific areas of voltage amplitude in the posterior wall. At baseline all 4
pulmonary veins were isolated and there was patchy electroanatomic scar in the posterior wall from prior extrapulmonary lesions. Once the posterior wall was isolated Intratect was confirmed in all 4 pulmonary veins most likely to posterior wall.
EP study post procedure did not demonstrate any other inducible tachyarrhythmia. 0.2 mg of glycopyrrolate was given before ablation.
9. No pericardial effusion pre and post procedure.
TOTAL FLOURO TIME: 16 minutes
TOTAL RF DURATION: 0 minutes
REVERSAL OF HEPARIN: 35 mg of protamine, slow IV administration
COMPLICATIONS:
None
Intracardiac US shows no pericardial effusion post ablation.
SUMMARY:
Complex left atrial mapping and ablation.
Isolation of the left atrial posterior wall as well as carinal lesions given to the left veins.
RECOMMENDATIONS:
1. Admit to monitored bed.
2. Resume anticoagulation
3. Out of bed 4 hours
4. Anticipate discharge on September 05, 2023
Copy to: Dr. Ashok Jara
[2023-09-04] MEDS: BUMEX 1 MG PO (17:15)
[2023-09-04] MEDS: TIMOPTIC 0.5% OPHTHALMIC SOLUTION 1 DROP BOTH EYES (19:46)
[2023-09-04] MEDS: COZAAR 50 MG PO (19:46)
[2023-09-04] MEDS: COLACE 100 MG PO (19:46)
--- NOTE | 2023-09-04 20:31 | PTCARENOTE ---
Assumed care. figure 8 sutures removed. Bedrest complete. b/l groins CDI, purwick discontinued, walked to the bathroom, voided. SB/NSR, VSS, call alejandre in reach
[2023-09-04] MEDS: XARELTO 20 MG PO (22:08)
[2023-09-04] MEDS: LIPITOR 10 MG PO (22:08)
[2023-09-04] MEDS: TOPROL XL 75 MG PO (22:08)
[2023-09-05 05:00] VITALS: BP 108/61
[2023-09-05] MEDS: SYNTHROID 50 MCG PO (05:17)
[2023-09-05 05:24] LABS: Hematocrit 32.1 % (37.0-47.0); Hemoglobin 10.9 g/dL (12.0-16.0); Mean Corpuscular Hgb 32.8 pg (27.0-31.0); Mean Corpuscular Volume 96.7 fL (81.0-99.0); Mean Platelet Volume 9.3 fL (7.4-10.4); Platelet Count 216 10^3/uL (130-400); Red Blood Cell Count 3.32 10^6/uL (4.20-5.40); Red Cell Dist. Width 13.9 % (11.5-14.5); White Blood Cell Count 7.6 10^3/uL (4.8-10.8)
[2023-09-05 05:58] LABS: Blood Urea Nitrogen 27 mg/dl (7-17); Carbon Dioxide 22 mmol/L (22-30); Chloride 104 mmol/L (98-107); Estimated Creatinine Clearance 45 ml/min; Glucose 105 mg/dl (70-99); Potassium 3.9 mmol/L (3.5-5.1); Sodium 134 mmol/L (135-145); eGFR 58.39
--- NOTE | 2023-09-05 07:38 | W.PN.CARDCBS ---
Addendum entered and electronically signed by Brock Cano MD 09/05/23 09:34:
patient seen and examined
sr overnight
answered all questions
exam per TOOL HONING MACHINE SET UP OPERATOR note
groins cdi
sr on tele
jvp 6
aao x 3
non focal neurologically
Impression:
Recurrent symptomatic PAF
prior PVI 02/2021
post PFA PVI 09/04/23
Chronic HFpEF 60%
HTN
HLD
CKD 3b
LIMA/CPAP
hypermagnesemia
Diverticulosis
Glaucoma
Anxiety
SUMMARY:
Complex left atrial mapping and ablation.
Isolation of the left atrial posterior wall as well as carinal lesions given to the left veins.
Plan:
post ablation feels good
groins stable
tele
OAC Xarelto
Decrease Amiodarone to 100mg daily
continue metoprolol 75mg daily
Mg levels running >2, Will stop MVI with magnesium
Activity restrictions reviewed
f/u Dr. Jara in 2 mo
home today
Original Note:
Today's Communication / Plan
-
post PVI/PFA stable for d/c home
Impression / Plan
-
PCP: Job Cifuentes MD
CDY: Ashok Jara MD
Impression:
Recurrent symptomatic PAF
prior PVI 02/2021
post PFA PVI 09/04/23
Chronic HFpEF 60%
HTN
HLD
CKD 3b
LIMA/CPAP
hypermagnesemia
Diverticulosis
Glaucoma
Anxiety
SUMMARY:
Complex left atrial mapping and ablation.
Isolation of the left atrial posterior wall as well as carinal lesions given to the left veins.
Plan:
post ablation feels good
groins stable
tele
OAC Xarelto
Decrease Amiodarone to 100mg daily
continue metoprolol 75mg daily
Mg levels running >2, Will stop MVI with magnesium
Activity restrictions reviewed
f/u Dr. Jara in 2 mo
home today
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
Subjective
Date of Service: September 05, 2023
no cp, sob
Objective
Labs:
09/05/23 05:08
09/05/23 05:08
Labs
Hgb 10.9 g/dL (12.0-16.0) L 09/05/23 05:08
Hct 32.1 % (37.0-47.0) L 09/05/23 05:08
Plt Count 216 10^3/uL (130-400) 09/05/23 05:08
Sodium 134 mmol/L (135-145) L 09/05/23 05:08
Potassium 3.9 mmol/L (3.5-5.1) 09/05/23 05:08
BUN 27 mg/dl (7-17) H 09/05/23 05:08
Creatinine 1.0 mg/dL (0.6-1.0) 09/05/23 05:08
Glucose 105 mg/dl (70-99) H 09/05/23 05:08
Vital Signs and I&O:
Vital Signs
Temp Pulse Resp BP Pulse Ox
97.5 F 55 16 108/61 98
09/05/23 05:02 09/05/23 05:00 09/05/23 05:02 09/05/23 05:00 09/05/23 05:02
Vital Signs
Temp Pulse Resp BP Pulse Ox
97.5 F 55 16 108/61 98
09/05/23 05:02 09/05/23 05:00 09/05/23 05:02 09/05/23 05:00 09/05/23 05:02
Intake & Output
09/03/23 09/04/23 09/05/23 09/06/23
06:59 06:59 06:59 06:59
Intake Total 1140 / 1140
Balance 1140 / 1140
Physical Exam
Physical Exam
NAD, AOx3
S1, S2, RRR
CTAB, non labored, no wheeze
SNTND bsx4
b/l groins c/d/i no HT, soft
[2023-09-05 08:04] VITALS: BP 155/85
--- NOTE | 2023-09-05 08:41 | W.DS.TRANS ---
DC Summary - Metal Sprayer
-
Discharge Instructions:
Discharge Diagnosis/Procedures AFib, s/p ablation
Diet Low Cholesterol
Driving Restrictions No driving for 24 hours
Instructions:
Stand-Alone Forms: DC Instructions- Cath/EP Lab
Changes to Home Medications: Yes
Discharge Medications:
DC Medications w/original date entered in [facility]
alprazolam 0.25 mg tablet 0.25 mg PO BIDPRN PRN anxiety 03/03/21
cetirizine 10 mg tablet 10 mg PO DAILY Allergies 03/03/21
rivaroxaban 20 mg tablet (Xarelto) 20 mg PO HS Blood clot prevention/tx 03/03/21
timolol maleate 0.5 % eye drops 1 drp BOTH EYES BID Eye condition 03/03/21
metoprolol succinate 50 mg tablet,extended release 24 hr 75 mg PO HS Heart disease/condition 03/17/21
atorvastatin 10 mg tablet 10 mg PO HS 08/15/23
bumetanide 1 mg tablet 1 mg PO BID 08/15/23
coQ10 (ubiquinol) 100 mg capsule 100 mg PO HS 08/15/23
dapagliflozin propanediol 10 mg tablet (Farxiga) 10 mg PO DAILY 08/15/23
docusate sodium 100 mg capsule (Colace) 100 mg PO BID 08/15/23
levothyroxine 50 mcg tablet 50 mcg PO DAILY 08/15/23
losartan 50 mg tablet 50 mg PO BID 08/15/23
multivitamin 1 tab PO DAILY 08/15/23
acyclovir 200 mg capsule 200 mg PO DAILY 08/21/23
bisacodyl 5 mg tablet,delayed release (Dulcolax (bisacodyl)) 5 mg PO DAILYPRN PRN constipation 08/21/23
amiodarone 100 mg tablet (Pacerone) 100 mg PO DAILY #90 tabs 09/04/23
Home Medication Changes
decreased amio to 100mg daily
Pending Results: No
--- NOTE | 2023-09-05 09:04 | CM ---
Reviewed chart. Met with Mrs Jesus to review discharge plans. She states prior to admission she resides alone in a one story home with one step to enter. She states prior to admission she was independent with ambulation and adls. She states
she has a CPAP Machine at home and no other DME in the home. She states she has a prescription plan and uses [facility]. Medical work-up in progress. The discharge plan is to return home when medically stable.
[2023-09-05] MEDS: BUMEX 1 MG PO (09:27)
[2023-09-05] MEDS: COZAAR 50 MG PO (09:27)
[2023-09-05] MEDS: COLACE 100 MG PO (09:27)
[2023-09-05] MEDS: ZOVIRAX 200 MG PO (09:28)
[2023-09-05] MEDS: FARXIGA 10 MG PO (09:28)
[2023-09-05] MEDS: PACERONE 100 MG PO (09:28)
[2023-09-05] MEDS: ZYRTEC 10 MG PO (09:29)
[2023-09-05] MEDS: TIMOPTIC 0.5% OPHTHALMIC SOLUTION 1 DROP BOTH EYES (09:29)
--- NOTE | 2023-09-05 09:44 | PTCARENOTE ---
Received patient this morning ambulating in the room. Bilateral groin sites are clean, dry and intact. Patient seen by Dr. Cano and is ok for discharge. Patient will telephone her nephew for a ride home.
[2023-09-05 09:48] VITALS: BMI 27.3
== END 2023-09-05 10:08 | disposition home or self-care (01) ==
LOC: CATH 10:31
PROVIDERS: Nurse Practitioner; ATTENDING PHYSICIAN Internal Medicine Cardiovascular Disease; FAMILY PHYSICIAN Internal Medicine; OTHER PHYSICIAN Internal Medicine Cardiovascular Disease
DX: I48.0 Paroxysmal atrial fibrillation (principal); E78.5 Hyperlipidemia, unspecified; R00.2 Palpitations; N18.32 Chronic kidney disease, stage 3b; I08.1 Rheumatic disorders of both mitral and tricuspid valves; I13.0 Hypertensive heart and chronic kidney disease with heart failure and stage 1 through stage 4 chronic kidney disease, or unspecified chronic kidney disease; E03.9 Hypothyroidism, unspecified; R06.02 Shortness of breath; R00.1 Bradycardia, unspecified; G47.33 Obstructive sleep apnea (adult) (pediatric); K57.90 Diverticulosis of intestine, part unspecified, without perforation or abscess without bleeding; M19.90 Unspecified osteoarthritis, unspecified site; D64.9 Anemia, unspecified; H40.9 Unspecified glaucoma; F41.9 Anxiety disorder, unspecified; M85.80 Other specified disorders of bone density and structure, unspecified site; B00.9 Herpesviral infection, unspecified; D72.819 Decreased white blood cell count, unspecified; E87.1 Hypo-osmolality and hyponatremia; E83.41 Hypermagnesemia; R74.01 Elevation of levels of liver transaminase levels; Z79.84 Long term (current) use of oral hypoglycemic drugs; Z79.624 Long term (current) use of inhibitors of nucleotide synthesis; Z79.01 Long term (current) use of anticoagulants; Z79.890 Hormone replacement therapy; E83.42 Hypomagnesemia
CPT/HCPCS: C1732; C1733; C1894; C1730; C1769; C1892; C1759; 76937; 80048; 85027; 85347; 93005; 93656

== ENCOUNTER 2023-10-13 10:15 | Emergency (ER) | payer MEDICARE, OTHER, SELFPAY ==
[2023-10-13] VITALS (19 sets, daily range): BP systolic 90–144; BP diastolic 53–102; BMI 27.3
[2023-10-13 10:59] LABS: % Basophils 0.6 % (0-2); % Eosinophils 2.9 % (0-6); % Immature Granulocytes 0.2 % (0-0.5); % Lymphocytes 15.2 % (20.5-51.1); % Monocytes 10.9 % (1.7-9.3); % Neutrophils 70.2 % (42.2-75.2); Absolute Eosinophils 0.1 10^3/uL (0-0.7); Absolute Lymphocytes 0.7 10^3/uL (1.2-3.4); Absolute Monocytes 0.5 10^3/uL (0.1-0.6); Absolute Neutrophils 3.4 10^3/uL (1.4-6.5); Hematocrit 35.9 % (37.0-47.0); Hemoglobin 12.3 g/dL (12.0-16.0); Mean Corp Hgb Conc. 34.3 g/dL (33.0-37.0); Mean Corpuscular Hgb 32.5 pg (27.0-31.0); Mean Platelet Volume 9.4 fL (7.4-10.4); Nucleated Red Blood Cells % 0 %; Platelet Count 237 10^3/uL (130-400); Red Blood Cell Count 3.78 10^6/uL (4.20-5.40); Red Cell Dist. Width 13.2 % (11.5-14.5); White Blood Cell Count 4.9 10^3/uL (4.8-10.8)
--- NOTE | 2023-10-13 11:07 | ED.GENMED ---
History of Present Illness
General
Chief Complaint: Chest Pain
Source: patient and records
Exam Limitations: none
Time Seen by Provider: 10/13/23 10:27
Nursing documentation reviewed up to this point in time: agreed with
History of Present Illness
History of Present Illness:
78-year-old female presents complaining of feeling like she went into atrial fibrillation around 10 PM last night, and she still feels the palpitations today. Recent cardiac ablation by Dr. Cano on 09/04/2023.
Past History
Past History
ED Past Medical History: Arrthythmia, CHF, HTN, Valvular disease and Other (Renal insufficiency, cataracts, glaucoma)
ED Past Surgical History: Cardiac (Cardiac ablation) and Orthopedic (Right rotator cuff surgery, left hammertoe repair)
Social History
Tobacco: Non-smoker
Alcohol: None
Review of Systems
Review of Systems
Allergies reviewed?: Yes
All Other Systems: Not applicable
Constitutional: Reports no symptoms
EENT: Reports no symptoms
Respiratory: Reports cough and trouble breathing
Cardiac: Reports palpitations
ABD/GI: Reports no symptoms
: Reports no symptoms
Musculoskeletal: Reports no symptoms
Skin: Reports no symptoms
Neurological: Reports no symptoms
Endocrine: Reports no symptoms
Hematologic/Lymphatic: Reports no symptoms
Psychiatric: Reports no symptoms
Phy Exam
Physical Exam
Physical Exam:
Physical Exam
General: no apparent distress, not acutely ill
Neck: supple. no meningeal signs. normal posterior pharynx
Heart: s1/s2 regular rate and irregular rhythm, no murmur. equal radial
pulses.
HEENT: Pupils equal round reactive to light, EOMI
Lungs: no acute respiratory distress. clear bilaterally
Abdomen: normal bowel sounds. not tender. no CVAT
Neuro: alert and oriented. no focal neurological deficits cranial nerves II through XII intact
Skin: no rash
Psychiatric: well kept. interactive and cooperative
Extremities: no edema. no calf tenderness. negative homans. good distal pulses
Scores
Heart Score for Chest Pain Patients
STEMI patient?: Not applicable
Course
Orders/Labs/Results
Orders:
Orders
10/13/23 10:18
Electrocardiogram (*1) Urgent
Reason for Study: Palpitations
10/13/23 10:19
EKG- Treatment ONCE
10/13/23 10:53
Complete Blood Count/With Diff Urgent
Comprehensive Metabolic Panel Urgent
Magnesium Urgent
10/13/23 11:07
CR Chest - 2 Views Urgent
Comment:
Reason For Exam: coughf, short of breath
10/13/23 11:46
ASA Classification Routine
Propofol [Diprivan] 50 mg IV NOW STA
10/13/23 12:24
EKG [Electrocardiogram (*1)] Urgent
Reason for Study: Other
Other Reason for Exam: post cardioversion
EKG- Treatment ONCE
Abnormal Lab Results
10/13/23
10:53
RBC 3.78 L 10^6/uL
(4.20-5.40)
Hct 35.9 L %
(37.0-47.0)
MCH 32.5 H pg
(27.0-31.0)
Absolute Lymphs (auto) 0.7 L 10^3/uL
(1.2-3.4)
Lymphocytes % 15.2 L %
(20.5-51.1)
Monocytes % 10.9 H %
(1.7-9.3)
BUN 27 H mg/dl
(7-17)
Creatinine 1.2 H mg/dL
(0.6-1.0)
Glucose 105 H mg/dl
(70-99)
Magnesium 2.9 H mg/dl
(1.6-2.3)
10/13/23 10:53
10/13/23 10:53
Vital Signs
Initial and Last Documented VS:
Initial Vital Signs
Temp Pulse Resp BP Pulse Ox
98.0 F 97 16 131/94 98
10/13/23 10:20 10/13/23 10:20 10/13/23 10:20 10/13/23 10:20 10/13/23 10:20
Last Documented Vital Signs
Temp Pulse Resp BP Pulse Ox
97.9 F 49 11 114/67 99
10/13/23 13:29 10/13/23 13:45 10/13/23 13:15 10/13/23 13:45 10/13/23 13:45
Procedures
Moderate Sedation
ASA Risk Score: Class II
Chart and allergies reviewed: Yes
Consent for anesthesia obtained: Yes
Time out completed (validating right patient & procedure): Yes
Moderate Sedation Start Time(when first medication is given): 12:20
History of difficult intubation: No
Airway free of obstruction: Yes
Patient has a gag reflex: Yes
Patient is able to open mouth: Yes
Patient has no dentures: Yes
Patient has no loose teeth: Yes
Medication administered by Provider during Moderate Sedation: IV Propofol (mg)
Total dose administered: 80
Time drug administered: 12:20
Moderate Sedation Procedure End Time: 12:30
Cardioversion
Indication:: Afib
Performed by:: Yasemin
Synchronized?: Yes
Energy Used: 150 joules
Number of attempts: 1
Successful?: Yes
ASA Risk Score: Class II
Any reaction or bad outcome to prior sedation/anesthesia?: No history of a reaction
Sedation level to be attained: moderate
Chart and allergies reviewed: Yes
Patient reassessed prior to sedation: Yes
Time out completed at (validating right patient & procedure): 12:19
History of difficult intubation: No
Airway free of obstruction: Yes
Patient has a gag reflex: Yes
Patient is able to open mouth: Yes
Patient has no dentures: Yes
Patient has no loose teeth: Yes
Medication administered by Provider during Moderate Sedation: IV Propofol (mg) (80)
Total dose administered: 80
Time drug administered: 12:20
Start Time: 12:20
Stop Time: 12:30
MDM/Problems Addressed
Differential Diagnosis Includes:
atrial fibrillation
MDM/Problems Addressed:
78-year-old female with symptomatic atrial fibrillation. Cardioversion completed. Patient stable for discharge
Chronic conditions affecting care: Arrhythmia
Acute Exacerbation and/or Progression of Chronic Illness: Arrhythmia
*Pulse Oximetry
Patient hypoxic: no
*EKG
Interpreted by ED Provider?: Yes
EKG Intrepretation Date: 10/13/23
EKG Intrepretation Time: 10:21
Interpretation: abnormal
Comparison EKG: changes noted
Heart Rate: 100
Rate: normal
Rhythm: a-fib
[place]: normal axis
Interval: normal interval
QRS Pattern: normal QRS
Ischemia: no ischemia
*Licensed Therapist Interpretation
Rate: bradycardiac
Interpretation: abnormal
Heart Rate: 55
Rhythm: sinus
*Critical Care Note
Total Time (30-74mins, 75-104mins- exclusive of procedures): Not Applicable
Data Reviewed
Review of Other/Old Records Reveals: Operative Reports (cardiac ablation by Rachael 09/04/23)
Source: records
Patient Management
Social determinants of health affecting care: Living situation and Strong social support
Discussion with other providers: Service Dog Trainer (cardiology Dr. Busby recommends cardioversion)
Escalation/DeEscalation of care consider admission/obs:
admit not indicated
ED Attending Note
-
Portions of this chart may have been created with voice recognition software.� Occasional wrong word or��sound alike� substitutions may have occurred due to the inherent limitations of voice recognition software.
Discharge Plan
Departure
Patient Disposition: Home (Routine Discharge)
Date of Disposition: 10/13/23
Time of Disposition: 13:32
Patient with high blood pressure during this ER visit?: Yes
Condition: Good
Discharge Problem:
Atrial fibrillation
Instructions: Atrial fibrillation, MODERATE SEDATION ADULT, BLOOD PRESSURE
Prescriptions:
No Action
cetirizine 10 MG tablet
10 mg PO DAILY
alprazolam 0.25 MG tablet
0.25 mg PO BIDPRN PRN (Reason: anxiety)
timolol maleate 1 DROP drops
1 drp BOTH EYES BID
Xarelto 20 MG tablet
20 mg PO HS
metoprolol succinate 50 MG tablet extended release 24 hr
75 mg PO HS
multivitamin Tablet
1 tab PO DAILY
losartan 50 mg Tablet
50 mg PO BID
atorvastatin 10 mg Tablet
10 mg PO HS
levothyroxine 50 mcg Tablet
50 mcg PO DAILY
docusate sodium [Colace] 100 mg Capsule
100 mg PO BID
bumetanide 1 mg Tablet
1 mg PO BID
coQ10 (ubiquinol) 100 mg Capsule
100 mg PO HS
dapagliflozin propanediol [Farxiga] 10 mg Tablet
10 mg PO DAILY
bisacodyl [Dulcolax (bisacodyl)] 5 mg Tablet,Delayed Release (Dr/Ec)
5 mg PO DAILYPRN PRN (Reason: constipation)
acyclovir 200 mg Capsule
200 mg PO DAILY
amiodarone [Pacerone] 100 mg Tablet
100 mg PO DAILY Qty: 90 3RF
Referrals:
Job Cifuentes MD [Family Provider] -
Interventions
Interventions:
*Risk Screen - Suicide Last Done: 10/13/23 14:13
*General Assessment Last Done: 10/13/23 14:13
*Neglect/Abuse Screening Last Done: 10/13/23 14:13
ED- Fall Risk Assessment Last Done: 10/13/23 14:13
*ED COVID-19 Vaccine History Last Done: 10/13/23 10:20
*Nursing Disposition Last Done: 10/13/23 14:13
ED- Cardiac Assessment Last Done: 10/13/23 10:51
Discharge Date and Time
Discharge Date/Time: 10/13/23 14:14
Print Language: JAPANESE
[2023-10-13 11:26] LABS: ALT (SGPT) 19 U/L (0-35); AST (SGOT) 23 U/L (14-36); Albumin 4.4 g/dl (3.5-5.0); Alkaline Phosphatase 82 U/L (38-126); Blood Urea Nitrogen 27 mg/dl (7-17); Calcium 9.1 mg/dl (8.4-10.2); Carbon Dioxide 27 mmol/L (22-30); Chloride 104 mmol/L (98-107); Estimated Creatinine Clearance 37 ml/min; Glucose 105 mg/dl (70-99); Magnesium 2.9 mg/dl (1.6-2.3); Potassium 4.1 mmol/L (3.5-5.1); Sodium 138 mmol/L (135-145); Total Protein 6.8 g/dl (6.3-8.2); eGFR 46.91
[2023-10-13] MEDS: DIPRIVAN 50 MG IV (12:20)
--- NOTE | 2023-10-13 12:42 | EDRN ---
Cardioversion performed by Dr. Hazel. First dose of propofol given at 1220, 50mg. Second dose of propofol given at 1222, 30mg. Patient shocked with 150J at 1223. Patient tolerated the procedure well.
== END 2023-10-13 14:14 | disposition home or self-care (01) ==
LOC: EMR 10:15
PROVIDERS: EMERGENCY PHYSICIAN Emergency Medicine; FAMILY PHYSICIAN Internal Medicine
DX: R07.89 Other chest pain (principal); I48.91 Unspecified atrial fibrillation; I11.0 Hypertensive heart disease with heart failure; I50.9 Heart failure, unspecified
CPT/HCPCS: 99283; 71046; 80053; 83735; 85025; 93005

== ENCOUNTER 2023-11-25 09:26 | Emergency (ER) | payer MEDICARE, OTHER, SELFPAY ==
[2023-11-25] VITALS (15 sets, daily range): BP systolic 94–158; BP diastolic 57–102; BMI 27.5
--- NOTE | 2023-11-25 09:39 | ED.GENMED ---
History of Present Illness
General
Chief Complaint: Heart Rate Problem
Time Seen by Provider: 11/25/23 09:39
History of Present Illness
History of Present Illness:
HPI: Patient has a history of A-fib in the past and feels she went back into A-fib at 10 PM last night. She is on Xarelto. Her symptoms are primarily palpitations and she knows what it feels like to be in A-fib. She states she had an ablation
this past August with Dr. Cano and then ended up coming back into the emergency department for DCCV in September. She was fine until last evening. She states she has not missed any doses of Xarelto
EXAM:
GENERAL: Well appearing in no distress
HEENT: Moist oral mucosa
CARDIOVASCULAR: No murmurs, borderline tachycardic, irregular rate, regular rhythm, No chest wall tenderness
PULMONARY: No respiratory distress, breath sounds are clear and equal
ABDOMEN: Soft with no peritoneal signs, no tenderness
NEUROLOGIC: Excellent strength all extremities, no coordination deficits
PSYCHIATRIC: Appropriate mental status, normal insight and judgement
EXTREMITIES: Nontender, no edema, moves all extremities equally
SKIN: No rash, no lesions
TIME OF INITIAL ENCOUNTER: 9:40 AM
NUMBER AND COMPLEXITY OF PROBLEMS ADDRESSED AT THE ENCOUNTER
� Chronic conditions affecting care: A-fib, CHF, high blood pressure, CKD
� Acute Exacerbation and/or Progression of Chronic Illness: This is an acute problem
� Differential Diagnosis includes: Recurrence of A-fib, electrolyte abnormality, thyroid disease, doubt ACS given lack of chest pain/pressure
AMOUNT AND/OR COMPLEXITY OF DATA TO BE REVIEWED AND ANALYZED
� I performed an independent evaluation of and my interpretation is:
EKG: A-fib 95, normal axis, diffuse nonspecific ST abnormality
CT:
X-rays:
Laboratory Studies: CBC normal, creatinine 1.1 otherwise chemistries relatively unremarkable however magnesium somewhat high at 2.8, TSH normal
Other:
� Review of other/old records: I reviewed records. The patient had ablation with Dr. Cano this past August. She was here in September and was cardioverted in ED
� Clinical information was obtained by an independent historian: Spoke to family at bedside
� Prescriptions/Medications Considered but not given:
� Further testing considered but not performed:
RISK OF COMPLICATIONS AND/OR MORBIDITY OR MORTALITY OF PATIENT MANAGEMENT
� Social determinants of health affecting care: Lives at home
� Discussion with other providers: Discussed case with Dr. Easley who agrees with DCCV. He also recommends increasing the amiodarone to 200 mg daily.
� Escalation of care including admission/observation vs risk of discharge considered: The patient signed informed consent at 11:15 AM. I had talked to Dr. Easley earlier. Planning DCCV and will increase amiodarone dosing. At
11:44 AM, the patient was given 20 mg of propofol x 3 equals 60 mg of propofol total and she was successfully cardioverted in 1 attempt with 150 J. She is to follow-up with Dr. Cano on Saturday. She already has 200 mg strength amiodarone at home.
Past History
Past History
ED Past Medical History: Arrthythmia, CHF, HTN, Valvular disease and Other (Renal insufficiency, cataracts, glaucoma)
ED Past Surgical History: Cardiac (Cardiac ablation) and Orthopedic (Right rotator cuff surgery, left hammertoe repair)
Social History
Tobacco: Non-smoker
Alcohol: None
Phy Exam
Physical Exam
Physical Exam:
See HPI
Course
Orders/Labs/Results
Orders:
Orders
11/25/23 09:29
ECG [Electrocardiogram (*1)] Urgent
Reason for Study: Atrial Fibrillation
11/25/23 09:30
EKG- Treatment ONCE
11/25/23 09:45
0.9% Sodium Chloride 1000 ml [Nss] 1,000 ml IV BOLUS
11/25/23 09:55
Basic Metabolic Panel Urgent
Complete Blood Count/With Diff Urgent
Magnesium Urgent
TSH Reflex To Free T4 Urgent
11/25/23 11:07
Propofol [Diprivan] 20 ml .ROUTE .STK-MED
11/25/23 11:50
Electrocardiogram (*1) Urgent
EKG- Treatment ONCE
Abnormal Lab Results
11/25/23
09:55
RBC 4.05 L 10^6/uL
(4.20-5.40)
MCH 32.6 H pg
(27.0-31.0)
Absolute Lymphs (auto) 1.0 L 10^3/uL
(1.2-3.4)
Lymphocytes % 18.9 L %
(20.5-51.1)
Monocytes % 10.4 H %
(1.7-9.3)
BUN 28 H mg/dl
(7-17)
Creatinine 1.1 H mg/dL
(0.6-1.0)
Glucose 105 H mg/dl
(70-99)
Magnesium 2.8 H mg/dl
(1.6-2.3)
11/25/23 09:55
11/25/23 09:55
Vital Signs
Initial and Last Documented VS:
Initial Vital Signs
Temp Pulse Resp BP Pulse Ox
98.2 F 101 18 158/93 97
11/25/23 09:29 11/25/23 09:29 11/25/23 09:29 11/25/23 09:29 11/25/23 09:29
Last Documented Vital Signs
Temp Pulse Resp BP Pulse Ox
98.5 F 53 16 100/59 97
11/25/23 11:55 11/25/23 11:55 11/25/23 11:55 11/25/23 11:55 11/25/23 11:55
Procedures
Cardioversion
Indication:: Afib
Performed by:: , Dr. Jennings
Synchronized?: Yes
Energy Used: 150 joules
Number of attempts: 1
Successful?: Yes
Complications: None
ASA Risk Score: Class II
Any reaction or bad outcome to prior sedation/anesthesia?: No history of a reaction
Sedation level to be attained: moderate
Chart and allergies reviewed: Yes
Patient reassessed prior to sedation: Yes
Time out completed at (validating right patient & procedure): 11:44
History of difficult intubation: No
Airway free of obstruction: Yes
Patient has a gag reflex: Yes
Patient is able to open mouth: Yes
Patient has no dentures: Yes
Patient has no loose teeth: Yes
Medication administered by Provider during Moderate Sedation: IV Propofol (mg)
Total dose administered: 60
Time drug administered: 11:44
Start Time: 11:44
Stop Time: 11:55
*Critical Care Note
Total Time (30-74mins, 75-104mins- exclusive of procedures): Not Applicable
ED Attending Note
-
Portions of this chart may have been created with voice recognition software.� Occasional wrong word or��sound alike� substitutions may have occurred due to the inherent limitations of voice recognition software.
Discharge Plan
Departure
Patient Disposition: Home (Routine Discharge)
Date of Disposition: 11/25/23
Time of Disposition: 11:58
Patient with high blood pressure during this ER visit?: Yes
Discharge Problem:
Atrial fibrillation status post cardioversion
Instructions: Atrial Fibrillation (DC)
Prescriptions:
No Action
cetirizine 10 MG tablet
10 mg PO DAILY
alprazolam 0.25 MG tablet
0.25 mg PO BIDPRN PRN (Reason: anxiety)
timolol maleate 1 DROP drops
1 drp BOTH EYES BID
Xarelto 20 MG tablet
20 mg PO HS
metoprolol succinate 50 MG tablet extended release 24 hr
75 mg PO HS
multivitamin Tablet
1 tab PO DAILY
losartan 50 mg Tablet
50 mg PO BID
atorvastatin 10 mg Tablet
10 mg PO HS
levothyroxine 50 mcg Tablet
50 mcg PO DAILY
docusate sodium [Colace] 100 mg Capsule
100 mg PO BID
bumetanide 1 mg Tablet
1 mg PO BID
coQ10 (ubiquinol) 100 mg Capsule
100 mg PO HS
dapagliflozin propanediol [Farxiga] 10 mg Tablet
10 mg PO DAILY
bisacodyl [Dulcolax (bisacodyl)] 5 mg Tablet,Delayed Release (Dr/Ec)
5 mg PO DAILYPRN PRN (Reason: constipation)
acyclovir 200 mg Capsule
200 mg PO DAILY
amiodarone [Pacerone] 100 mg Tablet
100 mg PO DAILY Qty: 90 3RF
Activity Restrictions/Additional Instructions:
I notified Dr. Easley. He recommends that you increase the amiodarone to 200 mg daily for now. It appears that you have an appointment with Dr. Cano on Saturday. You can discuss further dosing of amiodarone with Rachael on Saturday. We gave you
60 mg of propofol today�NO DRIVING today. Repeat EKG confirms that you are back in sinus rhythm.
Interventions
Interventions:
*Risk Screen - Suicide Last Done: 11/25/23 09:29
*General Assessment Last Done: 11/25/23 09:29
*Neglect/Abuse Screening Last Done: 11/25/23 09:29
ED- Fall Risk Assessment Last Done: 11/25/23 10:00
*ED COVID-19 Vaccine History Last Done: 11/25/23 09:29
ED- Cardiac Assessment Last Done: 11/25/23 10:00
ED- Pulmonary Assessment Last Done: 11/25/23 10:00
Discharge Date and Time
Print Language: TRISTANIAN
--- NOTE | 2023-11-25 09:43 | EDRN ---
Dr. Lemus in room w/pt at this time.
[2023-11-25] MEDS: NSS 1000 IV (09:59)
[2023-11-25 10:07] LABS: % Basophils 0.7 % (0-2); % Immature Granulocytes 0.2 % (0-0.5); % Lymphocytes 18.9 % (20.5-51.1); % Monocytes 10.4 % (1.7-9.3); % Neutrophils 66.8 % (42.2-75.2); Absolute Eosinophils 0.2 10^3/uL (0-0.7); Absolute Monocytes 0.6 10^3/uL (0.1-0.6); Absolute Neutrophils 3.6 10^3/uL (1.4-6.5); Hematocrit 38.9 % (37.0-47.0); Hemoglobin 13.2 g/dL (12.0-16.0); Mean Corp Hgb Conc. 33.9 g/dL (33.0-37.0); Mean Corpuscular Hgb 32.6 pg (27.0-31.0); Mean Platelet Volume 9.4 fL (7.4-10.4); Nucleated Red Blood Cells % 0 %; Platelet Count 236 10^3/uL (130-400); Red Blood Cell Count 4.05 10^6/uL (4.20-5.40); Red Cell Dist. Width 11.9 % (11.5-14.5); White Blood Cell Count 5.4 10^3/uL (4.8-10.8)
[2023-11-25 10:21] LABS: Calcium 9.3 mg/dl (8.4-10.2); Carbon Dioxide 28 mmol/L (22-30); Chloride 104 mmol/L (98-107); Estimated Creatinine Clearance 41 ml/min; Glucose 105 mg/dl (70-99); Magnesium 2.8 mg/dl (1.6-2.3); Potassium 3.9 mmol/L (3.5-5.1); Sodium 138 mmol/L (135-145); eGFR 52.08
[2023-11-25 10:26] LABS: Blood Urea Nitrogen 28 mg/dl (7-17)
[2023-11-25 10:51] LABS: TSH Reflex To Free T4 1.86 uIU/ml (0.47-4.68)
== END 2023-11-25 12:30 | disposition home or self-care (01) ==
LOC: EMR 09:26
PROVIDERS: EMERGENCY PHYSICIAN Emergency Medicine; FAMILY PHYSICIAN Internal Medicine
DX: I48.91 Unspecified atrial fibrillation (principal); I11.0 Hypertensive heart disease with heart failure; I50.9 Heart failure, unspecified; I13.0 Hypertensive heart and chronic kidney disease with heart failure and stage 1 through stage 4 chronic kidney disease, or unspecified chronic kidney disease; N18.9 Chronic kidney disease, unspecified; Z79.01 Long term (current) use of anticoagulants; Z91.048 Other nonmedicinal substance allergy status
CPT/HCPCS: 92960; 99285; 96360; 99152; 96361; 80048; 83735; 84443; 85025; 93005

== ENCOUNTER 2023-12-04 08:48 | Emergency (ER) | payer MEDICARE, OTHER, SELFPAY ==
[2023-12-04] VITALS (11 sets, daily range): BP systolic 94–163; BP diastolic 57–92; BMI 27.7
[2023-12-04 09:35] LABS: % Basophils 1.1 % (0-2); % Eosinophils 5.5 % (0-6); % Immature Granulocytes 0.2 % (0-0.5); % Lymphocytes 19.5 % (20.5-51.1); % Monocytes 14.1 % (1.7-9.3); % Neutrophils 59.6 % (42.2-75.2); Absolute Basophils 0.1 10^3/uL (0-0.2); Absolute Eosinophils 0.2 10^3/uL (0-0.7); Absolute Lymphocytes 0.9 10^3/uL (1.2-3.4); Absolute Monocytes 0.6 10^3/uL (0.1-0.6); Absolute Neutrophils 2.6 10^3/uL (1.4-6.5); Hematocrit 37.2 % (37.0-47.0); Hemoglobin 12.9 g/dL (12.0-16.0); Mean Corp Hgb Conc. 34.7 g/dL (33.0-37.0); Mean Corpuscular Hgb 32.7 pg (27.0-31.0); Mean Corpuscular Volume 94.2 fL (81.0-99.0); Mean Platelet Volume 9.4 fL (7.4-10.4); Nucleated Red Blood Cells % 0 %; Platelet Count 232 10^3/uL (130-400); Red Blood Cell Count 3.95 10^6/uL (4.20-5.40); Red Cell Dist. Width 11.9 % (11.5-14.5); White Blood Cell Count 4.4 10^3/uL (4.8-10.8)
[2023-12-04 10:03] LABS: Blood Urea Nitrogen 26 mg/dl (7-17); Calcium 9.3 mg/dl (8.4-10.2); Carbon Dioxide 27 mmol/L (22-30); Chloride 104 mmol/L (98-107); Estimated Creatinine Clearance 41 ml/min; Glucose 108 mg/dl (70-99); Potassium 4.6 mmol/L (3.5-5.1); Sodium 139 mmol/L (135-145); eGFR 52.08
--- NOTE | 2023-12-04 10:51 | ED.GENMED ---
History of Present Illness
<Lalo Tom Jr., PA-C - Last Filed: 12/04/23 12:44>
General
Chief Complaint: Cardiac Symptoms
Source: patient
Exam Limitations: none
Time Seen by Provider: 12/04/23 08:59
Nursing documentation reviewed up to this point in time: agreed with
History of Present Illness
History of Present Illness:
78-year-old female with past medical history of CKD, A-fib currently anticoagulated with Xarelto also taking amiodarone and metoprolol, CHF hypertension presenting to the emergency department today with concerns of potentially being in atrial
fibrillation with some mild palpitations last night and lightheadedness throughout the day today. Vital signs normal otherwise here heart 90s.
Past History
<Lalo Tom Jr., PA-C - Last Filed: 12/04/23 12:44>
Past History
ED Past Medical History: Arrthythmia, CHF, HTN, Valvular disease and Other (Renal insufficiency, cataracts, glaucoma)
ED Past Surgical History: Cardiac (Cardiac ablation) and Orthopedic (Right rotator cuff surgery, left hammertoe repair)
Social History
Tobacco: Non-smoker
Alcohol: None
Review of Systems
<Lalo Tom Jr., PA-C - Last Filed: 12/04/23 12:44>
Review of Systems
Allergies reviewed?: Yes
All Other Systems: ROS reviewed and negative except as documented in HPI and ROS
Phy Exam
<Lalo Tom Jr., PA-C - Last Filed: 12/04/23 12:44>
Physical Exam
Physical Exam:
GENERAL: Alert , in no apparent distress
EYE: pupils equal and reactive
NECK: Supple, no significant adenopathy.
ENT: o/p clr, mmm.
CARDIAC: Irregular rate and rhythm
LUNGS: Clear breath sounds bilaterally, no acute respiratory distress, no wheezes/rales/rhonchi
ABDOMEN: Soft, without focal tenderness, no r/g, no cvat
NEUROLOGICAL: Alert and oriented, no focal neuro deficits
SKIN: Warm and dry, skin intact.
MUSCULOSKELETAL: No edema, well perfused.
PSYCH: Normal and appropriate interaction.
Course
<Lalo Tom Jr., PA-C - Last Filed: 12/04/23 12:44>
Orders/Labs/Results
Orders:
Orders
12/04/23 08:53
EKG [Electrocardiogram (*1)] Urgent
Reason for Study: Atrial Fibrillation
EKG- Treatment ONCE
12/04/23 09:24
BMP [Basic Metabolic Panel] Urgent
CBC/With Diff [Complete Blood Count/With Diff] Urgent
12/04/23 10:27
Propofol [Diprivan] 20 ml .ROUTE .STK-MED
12/04/23 11:08
ECG [Electrocardiogram (*1)] Urgent
Reason for Study: Abnormal EKG
Other Reason for Exam: post cardioversion
EKG- Treatment ONCE
Abnormal Lab Results
12/04/23
09:24
WBC 4.4 L 10^3/uL
(4.8-10.8)
RBC 3.95 L 10^6/uL
(4.20-5.40)
MCH 32.7 H pg
(27.0-31.0)
Absolute Lymphs (auto) 0.9 L 10^3/uL
(1.2-3.4)
Lymphocytes % 19.5 L %
(20.5-51.1)
Monocytes % 14.1 H %
(1.7-9.3)
BUN 26 H mg/dl
(7-17)
Creatinine 1.1 H mg/dL
(0.6-1.0)
Glucose 108 H mg/dl
(70-99)
12/04/23 09:24
12/04/23 09:24
Vital Signs
Initial and Last Documented VS:
Initial Vital Signs
Temp Pulse Resp BP Pulse Ox
98.0 F 99 18 134/87 99
12/04/23 08:51 12/04/23 08:51 12/04/23 08:51 12/04/23 08:51 12/04/23 08:51
Last Documented Vital Signs
Temp Pulse Resp BP Pulse Ox
97.9 F 69 10 163/89 98
12/04/23 11:26 12/04/23 12:15 12/04/23 12:15 12/04/23 12:00 12/04/23 12:00
<Angel Mancera, DO - Last Filed: 12/04/23 11:18>
Orders/Labs/Results
Orders:
Orders
12/04/23 08:53
EKG [Electrocardiogram (*1)] Urgent
Reason for Study: Atrial Fibrillation
EKG- Treatment ONCE
12/04/23 09:24
BMP [Basic Metabolic Panel] Urgent
CBC/With Diff [Complete Blood Count/With Diff] Urgent
12/04/23 10:27
Propofol [Diprivan] 20 ml .ROUTE .STK-MED
12/04/23 11:08
ECG [Electrocardiogram (*1)] Urgent
Reason for Study: Abnormal EKG
Other Reason for Exam: post cardioversion
EKG- Treatment ONCE
Abnormal Lab Results
12/04/23
09:24
WBC 4.4 L 10^3/uL
(4.8-10.8)
RBC 3.95 L 10^6/uL
(4.20-5.40)
MCH 32.7 H pg
(27.0-31.0)
Absolute Lymphs (auto) 0.9 L 10^3/uL
(1.2-3.4)
Lymphocytes % 19.5 L %
(20.5-51.1)
Monocytes % 14.1 H %
(1.7-9.3)
BUN 26 H mg/dl
(7-17)
Creatinine 1.1 H mg/dL
(0.6-1.0)
Glucose 108 H mg/dl
(70-99)
12/04/23 09:24
12/04/23 09:24
Vital Signs
Initial and Last Documented VS:
Initial Vital Signs
Temp Pulse Resp BP Pulse Ox
98.0 F 99 18 134/87 99
12/04/23 08:51 12/04/23 08:51 12/04/23 08:51 12/04/23 08:51 12/04/23 08:51
Last Documented Vital Signs
Temp Pulse Resp BP Pulse Ox
97.9 F 69 10 163/89 98
12/04/23 11:26 12/04/23 12:15 12/04/23 12:15 12/04/23 12:00 12/04/23 12:00
Procedures
<Lalo Tom Jr., PA-C - Last Filed: 12/04/23 12:44>
Cardioversion
Indication:: Afib
Performed by:: Myself, Dr. Mancera
Synchronized?: Yes
Energy Used: 150 joules
Number of attempts: 1
Successful?: Yes
Complications: None
ASA Risk Score: Class II
Any reaction or bad outcome to prior sedation/anesthesia?: No history of a reaction
Sedation level to be attained: moderate
Chart and allergies reviewed: Yes
Patient reassessed prior to sedation: Yes
Time out completed at (validating right patient & procedure): 11:05
History of difficult intubation: No
Airway free of obstruction: Yes
Patient has a gag reflex: Yes
Patient is able to open mouth: Yes
Patient has no dentures: Yes
Patient has no loose teeth: Yes
Medication administered by Provider during Moderate Sedation: IV Propofol (mg) (50)
Total dose administered: 50
Time drug administered: 11:05
Start Time: 11:05
Stop Time: 11:16
<Lalo Tom Jr., PA-C - Last Filed: 12/04/23 12:44>
MDM/Problems Addressed
MDM/Problems Addressed:
78-year-old female presenting to the emergency department today with concerns of atrial fibrillation. Mild lightheadedness and palpitations since last night. Has been taking her Xarelto. Does have A-fib paroxysmally and has been cardioverted
multiple times. Most recently 9 days ago. Does follow-up with cardiology. Case was discussed with cardiology the recommended cardioversion and increasing amiodarone to 200 mg daily. She also will have close follow-up. Here she was cardioverted
without incident back to sinus rhythm. Patient did well post cardioversion able to walk able to drink stable for discharge return precautions given.
<Lalo Tom Jr., PA-C - Last Filed: 12/04/23 12:44>
*Critical Care Note
Total Time (30-74mins, 75-104mins- exclusive of procedures): Not Applicable
ED Attending Note
<Lalo Tom Jr., PA-C - Last Filed: 12/04/23 12:44>
-
Portions of this chart may have been created with voice recognition software.� Occasional wrong word or��sound alike� substitutions may have occurred due to the inherent limitations of voice recognition software.
<Angel Mancera DO - Last Filed: 12/04/23 11:18>
ED Attending Note
Patient seen and examined by attending physician: Yes
I performed the substantive portion of visit, reviewed & personally made and approve the management plan that is documented in note by myself or ABRAHAM.: Yes
ED Attending Note:
Is a 8-year-old female who presents with recurrent A-fib. States it started last night. Did recently have an ablation and also was cardioverted about 9 days ago. Patient is followed by cardiology who recommends cardioversion today. Patient
states she did feel little dizzy today. On my exam does not feel dizzy and is not short of breath. No chest pain. Assessment and plan: Cardioversion was successful. Cardioversion performed by myself and Ed MICHELLE Tom. Continue to observe and
anticipate discharge with outpatient cardiology follow-up
Discharge Plan
Departure
Patient Disposition: Home (Routine Discharge)
Date of Disposition: 12/04/23
Time of Disposition: 12:43
Patient with high blood pressure during this ER visit?: No
Condition: Good
Covid-19: Not Applicable
Discharge Problem:
Atrial fibrillation
Instructions: Atrial Fibrillation (DC), MODERATE SEDATION ADULT
Prescriptions:
New
amiodarone 200 mg tablet
200 mg PO DAILY 14 Days Qty: 14 0RF
No Action
cetirizine 10 MG tablet
10 mg PO DAILY
alprazolam 0.25 MG tablet
0.25 mg PO BIDPRN PRN (Reason: anxiety)
timolol maleate 1 DROP drops
1 drp BOTH EYES BID
Xarelto 20 MG tablet
20 mg PO HS
metoprolol succinate 50 MG tablet extended release 24 hr
75 mg PO HS
multivitamin Tablet
1 tab PO DAILY
losartan 50 mg Tablet
50 mg PO BID
atorvastatin 10 mg Tablet
10 mg PO HS
levothyroxine 50 mcg Tablet
50 mcg PO DAILY
docusate sodium [Colace] 100 mg Capsule
100 mg PO BID
bumetanide 1 mg Tablet
1 mg PO BID
coQ10 (ubiquinol) 100 mg Capsule
100 mg PO HS
dapagliflozin propanediol [Farxiga] 10 mg Tablet
10 mg PO DAILY
bisacodyl [Dulcolax (bisacodyl)] 5 mg Tablet,Delayed Release (Dr/Ec)
5 mg PO DAILYPRN PRN (Reason: constipation)
acyclovir 200 mg Capsule
200 mg PO DAILY
amiodarone [Pacerone] 100 mg Tablet
100 mg PO DAILY Qty: 90 3RF
Referrals:
Job Cfiuentes MD [Family Provider] -
Activity Restrictions/Additional Instructions:
You came to the emergency department today with concerns of atrial fibrillation. Here you were cardioverted. Please also increase your amiodarone to 200 mg daily until cardiology follow-up. Return to the emergency department any worsening, new or
concerning symptoms.
Interventions
Interventions:
*Risk Screen - Suicide Last Done: 12/04/23 08:52
*General Assessment Last Done: 12/04/23 08:52
*Neglect/Abuse Screening Last Done: 12/04/23 08:52
*ED COVID-19 Vaccine History Last Done: 12/04/23 08:52
ED- Pulmonary Assessment Last Done: 12/04/23 09:26
ED- Cardiac Assessment Last Done: 12/04/23 09:26
Discharge Date and Time
Print Language: LUXEMBOURGER
== END 2023-12-04 12:59 | disposition home or self-care (01) ==
LOC: EMR 08:48
PROVIDERS: Physician Assistant; EMERGENCY PHYSICIAN Emergency Medicine; FAMILY PHYSICIAN Internal Medicine
DX: I48.91 Unspecified atrial fibrillation (principal); I13.0 Hypertensive heart and chronic kidney disease with heart failure and stage 1 through stage 4 chronic kidney disease, or unspecified chronic kidney disease; I50.9 Heart failure, unspecified; N18.9 Chronic kidney disease, unspecified; I38 Endocarditis, valve unspecified; H40.9 Unspecified glaucoma; Z79.01 Long term (current) use of anticoagulants
CPT/HCPCS: 99283; 92960; 80048; 85025; 93005

== ENCOUNTER 2024-01-30 10:51 | Emergency (ER) | payer MEDICARE, OTHER, SELFPAY ==
[2024-01-30] VITALS (18 sets, daily range): BP systolic 75–129; BP diastolic 44–78; BMI 26.6
--- NOTE | 2024-01-30 11:04 | ED.GENMED ---
ED Provider Triage
<Ileana Caldwell PA-C - Last Filed: 01/30/24 11:58>
-
Patient seen by provider in Triage?: Seen in Triage
Attestation: A medical screening examination has been initiated by a qualified medical provider. Based on the assessment performed at this time, it has been determined that an emergent medical condition may exist and the patient has been informed
that further medical evaluation and possible additional diagnostic testing may be needed.
HPI: 78yoF here with palpitations starting at 8pm last night. Feels like she is in afib again. Hx of ablation in August with 3 cardioversions since then.
GENERAL: Alert , in no apparent distress
EYE: No visual abnormalities.
NECK: Trachea midline
ENT: No visible abnormalities.
LUNGS: No acute respiratory distress
NEUROLOGICAL: Alert and oriented
SKIN: Skin intact. No visible changes.
MUSCULOSKELETAL: Moving extremities normally
PSYCH: Normal and appropriate interaction.
This is a medical evaluation conducted in person to initiate diagnostic evaluation and provide initial therapeutics. Please see further documentation by the treating clinician.
HR in 110s in triage. BP stable. Check cardiac labs, magnesium, TSH, and EKG.
History of Present Illness
<Ileana Caldwell PA-C - Last Filed: 01/30/24 11:58>
General
Chief Complaint: Heart Rate Problem
Time Seen by Provider: 01/30/24 13:11
<Scott Metz PA-C - Last Filed: 01/30/24 15:19>
General
Source: patient
Exam Limitations: none
History of Present Illness
History of Present Illness:
78-year-old female presents for evaluation. She states I went into A-fib last evening at 8 PM. She has a history of paroxysmal atrial fibrillation and is on Xarelto. She also is on metoprolol and amiodarone. She has had multiple cardioversions
as well as ablations. She has never converted spontaneously or with medication. She feels slightly winded with exertion. She denies chest pain. No abdominal pain or vomiting. No other complaints at this time
Past History
<Ileana Caldwell PA-C - Last Filed: 01/30/24 11:58>
Past History
ED Past Medical History: Arrthythmia, CHF, HTN, Valvular disease and Other (Renal insufficiency, cataracts, glaucoma)
ED Past Surgical History: Cardiac (Cardiac ablation) and Orthopedic (Right rotator cuff surgery, left hammertoe repair)
Social History
Tobacco: Non-smoker
Alcohol: None
Phy Exam
<Scott Metz PA-C - Last Filed: 01/30/24 15:19>
Physical Exam
Physical Exam:
General: Well-appearing female no acute respiratory distress
HEENT: Normocephalic atraumatic
Heart: Tachycardic and irregular
Lungs: Clear no wheeze
Extremities: No cyanosis
Skin: Warm no rash
Course
<Ileana Caldwell PA-C - Last Filed: 01/30/24 11:58>
Orders/Labs/Results
Orders:
Orders
01/30/24 11:07
Electrocardiogram (*1) Urgent
Reason for Study: Palpitations
EKG- Treatment ONCE
01/30/24 11:48
Complete Blood Count/With Diff Urgent
Comprehensive Metabolic Panel Urgent
Magnesium Urgent
TSH Reflex To Free T4 Urgent
Troponin I Urgent
01/30/24 13:29
0.9% Sodium Chloride 1000 ml [Nss] 1,000 ml IV BOLUS
01/30/24 13:58
Propofol [Diprivan] 20 ml .ROUTE .STK-MED
01/30/24 14:24
Propofol [Diprivan] 50 mg IV NOW STA
01/30/24 14:30
EKG [Electrocardiogram (*1)] Urgent
Reason for Study: Other
Other Reason for Exam: POST CARDIOVERSION
EKG- Treatment ONCE
01/30/24 14:53
0.9% Sodium Chloride 500 ml [Nss] 500 ml IV BOLUS
Abnormal Lab Results
01/30/24
11:48
RBC 4.07 L 10^6/uL
(4.20-5.40)
MCH 31.4 H pg
(27.0-31.0)
Lymphocytes % 19.3 L %
(20.5-51.1)
Monocytes % 9.6 H %
(1.7-9.3)
BUN 29 H mg/dl
(7-17)
Creatinine 1.3 H mg/dL
(0.6-1.0)
Glucose 105 H mg/dl
(70-99)
Magnesium 2.8 H mg/dl
(1.6-2.3)
01/30/24 11:48
01/30/24 11:48
Vital Signs
Initial and Last Documented VS:
Initial Vital Signs
Temp Pulse Resp BP Pulse Ox
98.1 F 103 18 129/77 97
01/30/24 11:05 01/30/24 11:05 01/30/24 11:05 01/30/24 11:05 01/30/24 11:05
Last Documented Vital Signs
Temp Pulse Resp BP Pulse Ox
98 F 56 17 104/58 100
01/30/24 14:58 01/30/24 15:00 01/30/24 15:00 01/30/24 14:55 01/30/24 14:55
Anupamalt;Solomon Garrett DO - Last Filed: 01/30/24 13:52>
Orders/Labs/Results
Orders:
Orders
01/30/24 11:07
Electrocardiogram (*1) Urgent
Reason for Study: Palpitations
EKG- Treatment ONCE
01/30/24 11:48
Complete Blood Count/With Diff Urgent
Comprehensive Metabolic Panel Urgent
Magnesium Urgent
TSH Reflex To Free T4 Urgent
Troponin I Urgent
01/30/24 13:29
0.9% Sodium Chloride 1000 ml [Nss] 1,000 ml IV BOLUS
01/30/24 13:58
Propofol [Diprivan] 20 ml .ROUTE .STK-MED
01/30/24 14:24
Propofol [Diprivan] 50 mg IV NOW STA
01/30/24 14:30
EKG [Electrocardiogram (*1)] Urgent
Reason for Study: Other
Other Reason for Exam: POST CARDIOVERSION
EKG- Treatment ONCE
01/30/24 14:53
0.9% Sodium Chloride 500 ml [Nss] 500 ml IV BOLUS
Abnormal Lab Results
01/30/24
11:48
RBC 4.07 L 10^6/uL
(4.20-5.40)
MCH 31.4 H pg
(27.0-31.0)
Lymphocytes % 19.3 L %
(20.5-51.1)
Monocytes % 9.6 H %
(1.7-9.3)
BUN 29 H mg/dl
(7-17)
Creatinine 1.3 H mg/dL
(0.6-1.0)
Glucose 105 H mg/dl
(70-99)
Magnesium 2.8 H mg/dl
(1.6-2.3)
01/30/24 11:48
01/30/24 11:48
Vital Signs
Initial and Last Documented VS:
Initial Vital Signs
Temp Pulse Resp BP Pulse Ox
98.1 F 103 18 129/77 97
01/30/24 11:05 01/30/24 11:05 01/30/24 11:05 01/30/24 11:05 01/30/24 11:05
Last Documented Vital Signs
Temp Pulse Resp BP Pulse Ox
98 F 56 17 104/58 100
01/30/24 14:58 01/30/24 15:00 01/30/24 15:00 01/30/24 14:55 01/30/24 14:55
<Scott Metz PA-C - Last Filed: 01/30/24 15:19>
Orders/Labs/Results
Orders:
Orders
01/30/24 11:07
Electrocardiogram (*1) Urgent
Reason for Study: Palpitations
EKG- Treatment ONCE
01/30/24 11:48
Complete Blood Count/With Diff Urgent
Comprehensive Metabolic Panel Urgent
Magnesium Urgent
TSH Reflex To Free T4 Urgent
Troponin I Urgent
01/30/24 13:29
0.9% Sodium Chloride 1000 ml [Nss] 1,000 ml IV BOLUS
01/30/24 13:58
Propofol [Diprivan] 20 ml .ROUTE .STK-MED
01/30/24 14:24
Propofol [Diprivan] 50 mg IV NOW STA
01/30/24 14:30
EKG [Electrocardiogram (*1)] Urgent
Reason for Study: Other
Other Reason for Exam: POST CARDIOVERSION
EKG- Treatment ONCE
01/30/24 14:53
0.9% Sodium Chloride 500 ml [Nss] 500 ml IV BOLUS
Abnormal Lab Results
01/30/24
11:48
RBC 4.07 L 10^6/uL
(4.20-5.40)
MCH 31.4 H pg
(27.0-31.0)
Lymphocytes % 19.3 L %
(20.5-51.1)
Monocytes % 9.6 H %
(1.7-9.3)
BUN 29 H mg/dl
(7-17)
Creatinine 1.3 H mg/dL
(0.6-1.0)
Glucose 105 H mg/dl
(70-99)
Magnesium 2.8 H mg/dl
(1.6-2.3)
01/30/24 11:48
01/30/24 11:48
Vital Signs
Initial and Last Documented VS:
Initial Vital Signs
Temp Pulse Resp BP Pulse Ox
98.1 F 103 18 129/77 97
01/30/24 11:05 01/30/24 11:05 01/30/24 11:05 01/30/24 11:05 01/30/24 11:05
Last Documented Vital Signs
Temp Pulse Resp BP Pulse Ox
98 F 56 17 104/58 100
01/30/24 14:58 01/30/24 15:00 01/30/24 15:00 01/30/24 14:55 01/30/24 14:55
Procedures
<Scott Metz PA-C - Last Filed: 01/30/24 15:19>
Moderate Sedation
ASA Risk Score: Class II
Chart and allergies reviewed: Yes
Consent for anesthesia obtained: Yes
Time out completed (validating right patient & procedure): Yes
Moderate Sedation Start Time(when first medication is given): 14:24
History of difficult intubation: No
Airway free of obstruction: Yes
Patient has a gag reflex: Yes
Patient is able to open mouth: Yes
Patient has no dentures: Yes
Patient has no loose teeth: Yes
Medication administered by Provider during Moderate Sedation: IV Propofol (mg)
Total dose administered: 50
Time drug administered: 14:24
Moderate Sedation Procedure End Time: 14:37
<Scott Metz PA-C - Last Filed: 01/30/24 15:19>
MDM/Problems Addressed
Differential Diagnosis Includes:
Patient here with palpitations and sensation of rapid atrial fibrillation. EKG shows rapid atrial fibrillation. Check labs. There is no anemia or electrolyte abnormality. Kidney function is baseline.
Discussed with emergency room attending. Written consent obtained for moderate sedation with cardioversion
Cardioversion performed with 50 mg of sedation using propofol by emergency room attending. She was cardioverted using 150 J with 1 shock and this returned her to a sinus rhythm.
<Scott Metz PA-C - Last Filed: 01/30/24 15:19>
*Critical Care Note
Total Time (30-74mins, 75-104mins- exclusive of procedures): Not Applicable
ED Attending Note
<Ileana Caldwell PA-C - Last Filed: 01/30/24 11:58>
-
Portions of this chart may have been created with voice recognition software.� Occasional wrong word or��sound alike� substitutions may have occurred due to the inherent limitations of voice recognition software.
<Solomon Garrett DO - Last Filed: 01/30/24 13:52>
ED Attending Note
Patient seen and examined by attending physician: Yes
I performed the substantive portion of visit, reviewed & personally made and approve the management plan that is documented in note by myself or ABRAHAM.: Yes
ED Attending Note:
Seen with PA examined independently PAF patient with Dr. Rachael Walter since last night she has been n.p.o. compliant with her Xarelto request DC cardioversion
Discharge Plan
Departure
Patient Disposition: Home (Routine Discharge)
Date of Disposition: 01/30/24
Time of Disposition: 15:18
Patient with high blood pressure during this ER visit?: No
Discharge Problem:
Persistent atrial fibrillation
Instructions: MODERATE SEDATION ADULT
Prescriptions:
No Action
cetirizine 10 MG tablet
10 mg PO DAILY
alprazolam 0.25 MG tablet
0.25 mg PO BIDPRN PRN (Reason: anxiety)
timolol maleate 1 DROP drops
1 drp BOTH EYES BID
Xarelto 20 MG tablet
20 mg PO HS
metoprolol succinate 50 MG tablet extended release 24 hr
75 mg PO HS
multivitamin Tablet
1 tab PO DAILY
losartan 50 mg Tablet
50 mg PO BID
atorvastatin 10 mg Tablet
10 mg PO HS
levothyroxine 50 mcg Tablet
50 mcg PO DAILY
docusate sodium [Colace] 100 mg Capsule
100 mg PO BID
bumetanide 1 mg Tablet
1 mg PO BID
coQ10 (ubiquinol) 100 mg Capsule
100 mg PO HS
dapagliflozin propanediol [Farxiga] 10 mg Tablet
10 mg PO DAILY
bisacodyl [Dulcolax (bisacodyl)] 5 mg Tablet,Delayed Release (Dr/Ec)
5 mg PO DAILYPRN PRN (Reason: constipation)
acyclovir 200 mg Capsule
200 mg PO DAILY
amiodarone [Pacerone] 100 mg Tablet
100 mg PO DAILY Qty: 90 3RF
amiodarone 200 mg tablet
200 mg PO DAILY 14 Days Qty: 14 0RF
Referrals:
Job Cifuentes MD [Family Provider] -
Activity Restrictions/Additional Instructions:
Continue current medications. 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 Return here if needed
Interventions
Interventions:
*Risk Screen - Suicide Last Done: 01/30/24 11:05
*General Assessment Last Done: 01/30/24 11:05
*Neglect/Abuse Screening Last Done: 01/30/24 11:05
ED- Fall Risk Assessment Last Done: 01/30/24 13:29
*ED COVID-19 Vaccine History Last Done: 01/30/24 13:29
ED- Cardiac Assessment Last Done: 01/30/24 13:29
ED- Pulmonary Assessment Last Done: 01/30/24 13:29
Discharge Date and Time
Print Language: CAMEROONIAN
[2024-01-30 12:00] LABS: % Basophils 0.8 % (0-2); % Eosinophils 3.9 % (0-6); % Immature Granulocytes 0.3 % (0-0.5); % Lymphocytes 19.3 % (20.5-51.1); % Monocytes 9.6 % (1.7-9.3); % Neutrophils 66.1 % (42.2-75.2); Absolute Basophils 0.1 10^3/uL (0-0.2); Absolute Eosinophils 0.2 10^3/uL (0-0.7); Absolute Lymphocytes 1.2 10^3/uL (1.2-3.4); Absolute Monocytes 0.6 10^3/uL (0.1-0.6); Absolute Neutrophils 3.9 10^3/uL (1.4-6.5); Hematocrit 37.7 % (37.0-47.0); Hemoglobin 12.8 g/dL (12.0-16.0); Mean Corpuscular Hgb 31.4 pg (27.0-31.0); Mean Corpuscular Volume 92.6 fL (81.0-99.0); Mean Platelet Volume 9.6 fL (7.4-10.4); Nucleated Red Blood Cells % 0 %; Platelet Count 271 10^3/uL (130-400); Red Blood Cell Count 4.07 10^6/uL (4.20-5.40); Red Cell Dist. Width 12.9 % (11.5-14.5)
[2024-01-30 12:23] LABS: ALT (SGPT) 26 U/L (0-35); AST (SGOT) 28 U/L (14-36); Albumin 4.8 g/dl (3.5-5.0); Alkaline Phosphatase 96 U/L (38-126); Blood Urea Nitrogen 29 mg/dl (7-17); Calcium 9.4 mg/dl (8.4-10.2); Carbon Dioxide 28 mmol/L (22-30); Chloride 101 mmol/L (98-107); Glucose 105 mg/dl (70-99); Magnesium 2.8 mg/dl (1.6-2.3); Potassium 4.1 mmol/L (3.5-5.1); Sodium 141 mmol/L (135-145); Total Protein 7.2 g/dl (6.3-8.2); eGFR 42.62
[2024-01-30 12:27] LABS: Troponin I < 0.012 ng/ml
[2024-01-30 13:24] LABS: TSH Reflex To Free T4 1.69 uIU/ml (0.47-4.68)
[2024-01-30] MEDS: NSS 1000 IV (13:41)
[2024-01-30] MEDS: NSS 500 IV (14:54)
[2024-01-30] MEDS: DIPRIVAN 50 MG IV (15:04)
== END 2024-01-30 16:05 | disposition home or self-care (01) ==
LOC: EMR 10:51
PROVIDERS: Physician Assistant; EMERGENCY PHYSICIAN Emergency Medicine; FAMILY PHYSICIAN Internal Medicine
DX: I48.19 Other persistent atrial fibrillation (principal)
CPT/HCPCS: 92960; 99285; 96374; 96361; 99152; 80053; 83735; 84443; 84484; 85025; 93005

== ENCOUNTER 2024-01-31 09:48 | Emergency (ER) | payer MEDICARE, OTHER, SELFPAY ==
[2024-01-31] VITALS (14 sets, daily range): BP systolic 95–144; BP diastolic 56–90; BMI 27.5
--- NOTE | 2024-01-31 12:10 | ED.GENMED ---
History of Present Illness
<Kendrick Smith PA-C - Last Filed: 01/31/24 16:26>
General
Chief Complaint: Heart Rate Problem
Time Seen by Provider: 01/31/24 11:51
History of Present Illness
History of Present Illness:
Patient is a 78-year-old female with past medical history of atrial fibrillation on anticoagulation with Xarelto, rate control with metoprolol, and rhythm control with amiodarone, CHF, hypertension, history of mitral regurgitation, CKD, and
glaucoma, here today for palpitations in the setting of atrial fibrillation. She reports yesterday evening at approximately 7 PM she developed sudden onset of palpitations feeling like she was in an abnormal rhythm with atrial fibrillation. She
was seen here yesterday for similar symptoms and was diagnosed with atrial fibrillation with RVR. She underwent cardioversion and was ultimately discharged. Patient reports a longstanding history of cardioversion and has had greater than 8
procedures in total. She is here today requesting another cardioversion.
Past History
<Kendrick Smith PA-C - Last Filed: 01/31/24 16:26>
Past History
ED Past Medical History: Arrthythmia, CHF, HTN, Valvular disease and Other (Renal insufficiency, cataracts, glaucoma)
ED Past Surgical History: Cardiac (Cardiac ablation) and Orthopedic (Right rotator cuff surgery, left hammertoe repair)
Social History
Tobacco: Non-smoker
Alcohol: None
Review of Systems
<Kendrick Smith PA-C - Last Filed: 01/31/24 16:26>
Review of Systems
All Other Systems: ROS reviewed and negative except as documented in HPI and ROS
Phy Exam
<Kendrick Smith PA-C - Last Filed: 01/31/24 16:26>
Physical Exam
Physical Exam:
GENERAL: Alert , in no apparent distress
EYE: pupils equal and reactive
NECK: Supple, no significant adenopathy.
ENT: o/p clr, mmm.
CARDIAC: Tachycardic rate, irregular rhythm
LUNGS: Clear breath sounds bilaterally, no acute respiratory distress, no wheezes/rales/rhonchi
NEUROLOGICAL: Alert and oriented, no focal neuro deficits
SKIN: Warm and dry, skin intact.
MUSCULOSKELETAL: No edema, well perfused.
PSYCH: Normal and appropriate interaction.
Course
<Kendrick Smith PA-C - Last Filed: 01/31/24 16:26>
Orders/Labs/Results
Orders:
Orders
01/31/24 09:49
Electrocardiogram (*1) Urgent
Reason for Study: Chest Pain
EKG- Treatment ONCE
01/31/24 14:41
ASA Classification Routine
Propofol [Diprivan] 50 mg IV NOW STA
01/31/24 14:42
Cardioversion Urgent
01/31/24 14:55
Electrocardiogram (*1) Urgent
Reason for Study: Other
Other Reason for Exam: post cardioversion
EKG- Treatment ONCE
Vital Signs
Initial and Last Documented VS:
Initial Vital Signs
Temp Pulse Resp BP Pulse Ox
98.1 F 107 16 132/75 98
01/31/24 09:52 01/31/24 09:52 01/31/24 09:52 01/31/24 09:52 01/31/24 09:52
Last Documented Vital Signs
Temp Pulse Resp BP Pulse Ox
98.2 F 54 19 144/76 98
01/31/24 15:45 01/31/24 16:00 01/31/24 16:00 01/31/24 16:00 01/31/24 15:45
<Solomon Garrett DO - Last Filed: 01/31/24 15:16>
Orders/Labs/Results
Orders:
Orders
01/31/24 09:49
Electrocardiogram (*1) Urgent
Reason for Study: Chest Pain
EKG- Treatment ONCE
01/31/24 14:41
ASA Classification Routine
Propofol [Diprivan] 50 mg IV NOW STA
01/31/24 14:42
Cardioversion Urgent
01/31/24 14:55
Electrocardiogram (*1) Urgent
Reason for Study: Other
Other Reason for Exam: post cardioversion
EKG- Treatment ONCE
Vital Signs
Initial and Last Documented VS:
Initial Vital Signs
Temp Pulse Resp BP Pulse Ox
98.1 F 107 16 132/75 98
01/31/24 09:52 01/31/24 09:52 01/31/24 09:52 01/31/24 09:52 01/31/24 09:52
Last Documented Vital Signs
Temp Pulse Resp BP Pulse Ox
98.2 F 54 19 144/76 98
01/31/24 15:45 01/31/24 16:00 01/31/24 16:00 01/31/24 16:00 01/31/24 15:45
Procedures
<Kendrick Smith PA-C - Last Filed: 01/31/24 16:26>
Cardioversion
Indication:: Afib
Performed by:: Kendrick Smith PA-C, and Dr. Solomon Garrett
Synchronized?: Yes
Energy Used: 150 joules
Number of attempts: 1
Successful?: Yes
Complications: None
ASA Risk Score: Class II
Any reaction or bad outcome to prior sedation/anesthesia?: No history of a reaction
Sedation level to be attained: minimal
Chart and allergies reviewed: Yes
Patient reassessed prior to sedation: Yes
Time out completed at (validating right patient & procedure): 14:50
History of difficult intubation: No
Airway free of obstruction: Yes
Patient has a gag reflex: Not applicable
Patient is able to open mouth: Yes
Patient has no dentures: Yes
Patient has no loose teeth: Yes
Medication administered by Provider during Moderate Sedation: IV Propofol (mg)
Total dose administered: 50
Time drug administered: 14:51
Start Time: 14:52
Stop Time: 15:04
<Kendrick Smith PA-C - Last Filed: 01/31/24 16:26>
MDM/Problems Addressed
Differential Diagnosis Includes:
Patient is a 78-year-old female with past medical history of atrial fibrillation on anticoagulation with Xarelto, rate control with metoprolol, and rhythm control with amiodarone, CHF, hypertension, history of mitral regurgitation, CKD, and
glaucoma, here today for palpitations in the setting of atrial fibrillation. Overall, patient appears well. She is slightly tachycardic and EKG shows evidence of atrial fibrillation. Patient hemodynamically stable. Will discuss with cardiology
for recommendations.
Update: Case was discussed with cardiology attending, Dr. Busby. She reviewed chart and discussed with electrophysiology. She was able to make an appointment with EP with the physician medical support assistant, Penelope, for 02/20/2024 at 9:20 AM [facility]. Given patient was stable she recommended against cardioversion but stated that if patient was very symptomatic and requested cardioversion this could be completed. Myself and Dr. Garrett had a lengthy discussion with the patient.
Risks/benefits discussed in full detail. A decision was made to pursue cardioversion and this was performed, see procedure note for full details. Patient tolerated procedure well. Repeat EKG post cardioversion revealed conversion to normal sinus
rhythm. Patient returned back to baseline. She will be discharged at this time with recommendations to follow-up with EP/cardiology. Return precautions given for worsening symptoms. All questions answered. Stable for discharge.
<Solomon Garrett DO - Last Filed: 01/31/24 15:16>
*Pulse Oximetry
Patient hypoxic: no
*EKG
Interpreted by ED Provider?: Yes
Interpretation: abnormal
Comparison EKG: changes noted
Heart Rate: 118
Rate: tachycardiac
Rhythm: a-fib
Ischemia: non-specific ST changes
*Educational Assistant Interpretation
Rate: tachycardiac
Interpretation: abnormal
Heart Rate: 118
Rhythm: a-fib
*Critical Care Note
Total Time (30-74mins, 75-104mins- exclusive of procedures): 30
ED Attending Note
<Kendrick Smith PA-C - Last Filed: 01/31/24 16:26>
-
Portions of this chart may have been created with voice recognition software.� Occasional wrong word or��sound alike� substitutions may have occurred due to the inherent limitations of voice recognition software.
<Solomon Garrett DO - Last Filed: 01/31/24 15:16>
ED Attending Note
Patient seen and examined by attending physician: Yes
I performed the substantive portion of visit, reviewed & personally made and approve the management plan that is documented in note by myself or ABRAHAM.: Yes
ED Attending Note:
Seen with PA examined independently known to me from prior visits presents with A-fib request DC cardioversion same thing occurred recently PA spoke with cardiology will offer her 1 more cardioversion here today, also try to get an appoint with EP
if she had an ablation previously
I was present for the cardioversion and procedural sedation
Discharge Plan
Departure
Patient Disposition: Home (Routine Discharge)
Date of Disposition: 01/31/24
Time of Disposition: 16:10
Patient with high blood pressure during this ER visit?: No
Condition: Good
Covid-19: Not Applicable
Discharge Problem:
Atrial fibrillation, Encounter for cardioversion procedure
Instructions: Atrial Fibrillation (DC), Palpitations (DC)
Prescriptions:
No Action
cetirizine 10 MG tablet
10 mg PO DAILY
alprazolam 0.25 MG tablet
0.25 mg PO BIDPRN PRN (Reason: anxiety)
timolol maleate 1 DROP drops
1 drp BOTH EYES BID
Xarelto 20 MG tablet
20 mg PO HS
metoprolol succinate 50 MG tablet extended release 24 hr
75 mg PO HS
multivitamin Tablet
1 tab PO DAILY
losartan 50 mg Tablet
50 mg PO BID
atorvastatin 10 mg Tablet
10 mg PO HS
levothyroxine 50 mcg Tablet
50 mcg PO DAILY
docusate sodium [Colace] 100 mg Capsule
100 mg PO BID
bumetanide 1 mg Tablet
1 mg PO BID
coQ10 (ubiquinol) 100 mg Capsule
100 mg PO HS
dapagliflozin propanediol [Farxiga] 10 mg Tablet
10 mg PO DAILY
bisacodyl [Dulcolax (bisacodyl)] 5 mg Tablet,Delayed Release (Dr/Ec)
5 mg PO DAILYPRN PRN (Reason: constipation)
acyclovir 200 mg Capsule
200 mg PO DAILY
amiodarone [Pacerone] 100 mg Tablet
100 mg PO DAILY Qty: 90 3RF
amiodarone 200 mg tablet
200 mg PO DAILY 14 Days Qty: 14 0RF
Referrals:
Job Cifuentes MD [Family Provider] - Follow up in 5-7 days
Brock Cano MD [Active] - 02/20/24 9:20 am (At the [place], Cardiology)
Activity Restrictions/Additional Instructions:
We performed a cardioversion today which was successful.
Please follow-up with your doctor as well as cardiology/electrophysiology as an outpatient.
Return for any new, worsening, or concerning symptoms.
Interventions
Interventions:
*Risk Screen - Suicide Last Done: 01/31/24 09:52
*General Assessment Last Done: 01/31/24 09:52
*Neglect/Abuse Screening Last Done: 01/31/24 09:52
ED- Fall Risk Assessment Last Done: 01/31/24 11:51
*ED COVID-19 Vaccine History Last Done: 01/31/24 11:51
ED- Cardiac Assessment Last Done: 01/31/24 11:51
ED- Pulmonary Assessment Last Done: 01/31/24 11:51
Discharge Date and Time
Print Language: FRENCH
[2024-01-31] MEDS: DIPRIVAN 50 MG IV (14:51)
== END 2024-01-31 16:41 | disposition home or self-care (01) ==
LOC: EMR 09:48
PROVIDERS: EMERGENCY PHYSICIAN Emergency Medicine; FAMILY PHYSICIAN Internal Medicine
DX: I48.91 Unspecified atrial fibrillation (principal); I13.0 Hypertensive heart and chronic kidney disease with heart failure and stage 1 through stage 4 chronic kidney disease, or unspecified chronic kidney disease; I50.9 Heart failure, unspecified; N18.9 Chronic kidney disease, unspecified; I34.0 Nonrheumatic mitral (valve) insufficiency; H40.9 Unspecified glaucoma; Z79.01 Long term (current) use of anticoagulants
CPT/HCPCS: 99284; 92960; 93005

== ENCOUNTER → 2024-02-13 10:09 | Outpatient (REF) | payer MEDICARE, OTHER, SELFPAY | LOC: RAD 10:09 | PROVIDERS: ATTENDING PHYSICIAN Internal Medicine Cardiovascular Disease; FAMILY PHYSICIAN Internal Medicine | DX: I48.91 Unspecified atrial fibrillation (principal); I50.30 Unspecified diastolic (congestive) heart failure | CPT/HCPCS: 78803; A9538 ==

== ENCOUNTER 2024-02-17 13:47 | Emergency (ER) | payer MEDICARE, OTHER, SELFPAY ==
[2024-02-17 13:57] VITALS: BP 109/80
[2024-02-17 14:24] LABS: % Basophils 0.8 % (0-2); % Eosinophils 3.9 % (0-6); % Immature Granulocytes 0.3 % (0-0.5); % Lymphocytes 17.5 % (20.5-51.1); % Monocytes 11.1 % (1.7-9.3); % Neutrophils 66.4 % (42.2-75.2); Absolute Basophils 0.1 10^3/uL (0-0.2); Absolute Eosinophils 0.2 10^3/uL (0-0.7); Absolute Lymphocytes 1.1 10^3/uL (1.2-3.4); Absolute Monocytes 0.7 10^3/uL (0.1-0.6); Absolute Neutrophils 4.1 10^3/uL (1.4-6.5); Hematocrit 36.7 % (37.0-47.0); Hemoglobin 12.6 g/dL (12.0-16.0); Mean Corp Hgb Conc. 34.3 g/dL (33.0-37.0); Mean Corpuscular Hgb 31.1 pg (27.0-31.0); Mean Corpuscular Volume 90.6 fL (81.0-99.0); Mean Platelet Volume 9.3 fL (7.4-10.4); Nucleated Red Blood Cells % 0 %; Platelet Count 256 10^3/uL (130-400); Red Blood Cell Count 4.05 10^6/uL (4.20-5.40); Red Cell Dist. Width 13.2 % (11.5-14.5); White Blood Cell Count 6.2 10^3/uL (4.8-10.8)
[2024-02-17 14:35] LABS: INR 1.73; PT 20.1 Sec (11.4-14.6)
[2024-02-17 14:38] LABS: ALT (SGPT) 17 U/L (0-35); AST (SGOT) 22 U/L (14-36); Albumin 4.8 g/dl (3.5-5.0); Alkaline Phosphatase 84 U/L (38-126); Blood Urea Nitrogen 37 mg/dl (7-17); Calcium 9.4 mg/dl (8.4-10.2); Carbon Dioxide 26 mmol/L (22-30); Chloride 98 mmol/L (98-107); Glucose 101 mg/dl (70-99); Potassium 4.8 mmol/L (3.5-5.1); Sodium 136 mmol/L (135-145); Total Bilirubin 1.1 mg/dl (0.2-1.3); Total Protein 7.1 g/dl (6.3-8.2); eGFR 33.22
[2024-02-17 14:47] LABS: Troponin I < 0.012 ng/ml
--- NOTE | 2024-02-17 16:09 | ED.GENMED ---
History of Present Illness
General
Chief Complaint: Chest Pain
Source: patient
Exam Limitations: none
Time Seen by Provider: 02/17/24 16:06
History of Present Illness
History of Present Illness:
See MDM
Past History
Past History
ED Past Medical History: Arrthythmia, CHF, HTN, Valvular disease and Other (Renal insufficiency, cataracts, glaucoma)
ED Past Surgical History: Cardiac (Cardiac ablation) and Orthopedic (Right rotator cuff surgery, left hammertoe repair)
Social History
Tobacco: Non-smoker
Alcohol: None
Phy Exam
Physical Exam
Physical Exam:
See MDM
Scores
Heart Score for Chest Pain Patients
STEMI patient?: No
History: Moderately Suspicious
ECG: Normal
Age: >/= 65 years
Risk Factors: 1 or 2 Risk Factors
Troponin: </= Normal Limit
Heart Score for Chest Pain Patients: 4
Heart Score Risk: 20.3% MACE over next 6 weeks
Course
Orders/Labs/Results
Orders:
Orders
02/17/24 13:49
Electrocardiogram (*1) Urgent
Reason for Study: Chest Pain
EKG- Treatment ONCE
02/17/24 14:05
Complete Blood Count/With Diff Urgent
Comprehensive Metabolic Panel Urgent
PT/INR [Prothrombin Time] Urgent
Troponin I Urgent
Abnormal Lab Results
02/17/24
14:05
RBC 4.05 L 10^6/uL
(4.20-5.40)
Hct 36.7 L %
(37.0-47.0)
MCH 31.1 H pg
(27.0-31.0)
Absolute Lymphs (auto) 1.1 L 10^3/uL
(1.2-3.4)
Absolute Monos (auto) 0.7 H 10^3/uL
(0.1-0.6)
Lymphocytes % 17.5 L %
(20.5-51.1)
Monocytes % 11.1 H %
(1.7-9.3)
PT 20.1 H Sec
(11.4-14.6)
BUN 37 H mg/dl
(7-17)
Creatinine 1.6 H mg/dL
(0.6-1.0)
Glucose 101 H mg/dl
(70-99)
02/17/24 14:05
02/17/24 14:05
Vital Signs
Initial and Last Documented VS:
Initial Vital Signs
Temp Pulse Resp BP Pulse Ox
98.0 F 101 16 109/80 98
02/17/24 13:57 02/17/24 13:57 02/17/24 13:57 02/17/24 13:57 02/17/24 13:57
Last Documented Vital Signs
Temp Pulse Resp BP Pulse Ox
98.0 F 87 20 110/74 99
02/17/24 13:57 02/17/24 16:44 02/17/24 16:44 02/17/24 16:44 02/17/24 16:44
MDM/Problems Addressed
Differential Diagnosis Includes:
HPI and MDM Narrative:
78-year-old female presenting with chest pressure for the past 2 weeks. Symptoms are worse with exertion but she has been noticing at rest 2. She is unsure if this is related to A-fib. This is her third ER visit this month. Patient was in the
emergency department on the and the , both of which she was cardioverted. She went back in A-fib on the and has been in A-fib ever since. Her plan with cardiology is to place a pacemaker. Patient does recognize that this is likely
A-fib related. She has follow-up with cardiology in 3 days
Physical exam
General: Well appearing and non-toxic
HEENT: protecting airway
Neck: appears supple
CV: No evidence of cyanosis. Regular rate, irregular rhythm
Resp: No accessory muscle use. Lungs clear
Abd: Non-distended
Extremities: No deformities. No leg edema
Neuro: alert
Psych: Normal affect
Skin: Intact
Problems Addressed including Acute and Chronic Conditions affecting care:
1. Chest pain
Acuity: acute
Prognosis: stable
Details: Likely in the setting of her A-fib. Given duration of symptoms with a normal troponin, doubt ACS
Updates
Troponin negative. Given duration of symptoms, doubt ACS. When I was in the room, cardiology services called her and they set her pacemaker appointment for February 24. She has cardiology follow-up in a few days
Differential Diagnosis (but not limited to): ACS, symptomatic A-fib
Testing considered: Chest x-ray but lungs clear
Drug therapy (if applicable): OTC meds, please see d/c instruction regarding Rx drugs
Amount and/or Complexity of Data Reviewed
Clinical info obtained from: Patient
External data reviewed: patient was recently cardioverted earlier this month.
Labs I independently reviewed (but not limited to): Troponin normal
Radiology: N/A
Pulse Ox: not hypoxic
EKG independently reviewed: A-fib, normal axis, no STEMI
Clothes Wringer: A-fib
Critical Care: N/A
Risk of Complication:
Social Determinants of health: Good social support
Discussed with other providers: N/A
Escalation of Care includes Admit/Obs: After being observed in the Emergency Department, pt stable for discharge.
Occasional wrong word or 'sound a like' substitutions may have occurred due to the inherent limitations of voice recognition software. Read the chart carefully and recognize, using context, where substitutions have occurred.
*Critical Care Note
Total Time (30-74mins, 75-104mins- exclusive of procedures): Not Applicable
ED Attending Note
-
Portions of this chart may have been created with voice recognition software.� Occasional wrong word or��sound alike� substitutions may have occurred due to the inherent limitations of voice recognition software.
Discharge Plan
Departure
Patient Disposition: Home (Routine Discharge)
Date of Disposition: 02/17/24
Time of Disposition: 17:05
Patient with high blood pressure during this ER visit?: No
Discharge Problem:
A-fib
Prescriptions:
No Action
cetirizine 10 MG tablet
10 mg PO DAILY
alprazolam 0.25 MG tablet
0.25 mg PO BIDPRN PRN (Reason: anxiety)
timolol maleate 1 DROP drops
1 drp BOTH EYES BID
Xarelto 20 MG tablet
20 mg PO HS
metoprolol succinate 50 MG tablet extended release 24 hr
75 mg PO HS
multivitamin Tablet
1 tab PO DAILY
losartan 50 mg Tablet
50 mg PO BID
atorvastatin 10 mg Tablet
10 mg PO HS
levothyroxine 50 mcg Tablet
50 mcg PO DAILY
docusate sodium [Colace] 100 mg Capsule
100 mg PO BID
bumetanide 1 mg Tablet
1 mg PO BID
coQ10 (ubiquinol) 100 mg Capsule
100 mg PO HS
dapagliflozin propanediol [Farxiga] 10 mg Tablet
10 mg PO DAILY
bisacodyl [Dulcolax (bisacodyl)] 5 mg Tablet,Delayed Release (Dr/Ec)
5 mg PO DAILYPRN PRN (Reason: constipation)
acyclovir 200 mg Capsule
200 mg PO DAILY
amiodarone [Pacerone] 100 mg Tablet
100 mg PO DAILY Qty: 90 3RF
amiodarone 200 mg tablet
200 mg PO DAILY 14 Days Qty: 14 0RF
Referrals:
Job Cifuentes MD [Family Provider] -
Activity Restrictions/Additional Instructions:
Please keep your cardiology appointment. Return for worsening symptoms.
Interventions
Interventions:
*Risk Screen - Suicide Last Done: 02/17/24 13:57
*Neglect/Abuse Screening Last Done: 02/17/24 13:57
ED- Fall Risk Assessment Last Done: 02/17/24 15:57
ED- Cardiac Assessment Last Done: 02/17/24 15:57
Discharge Date and Time
Print Language: STATELESS
[2024-02-17 16:44] VITALS: BP 110/74
== END 2024-02-17 17:37 | disposition home or self-care (01) ==
LOC: EMR 13:47
PROVIDERS: Emergency Medicine; EMERGENCY PHYSICIAN Student in an Organized Health Care Education/Training Program; FAMILY PHYSICIAN Internal Medicine
DX: I48.91 Unspecified atrial fibrillation (principal); I11.0 Hypertensive heart disease with heart failure; I50.9 Heart failure, unspecified
CPT/HCPCS: 99284; 80053; 84484; 85025; 85610; 93005

== ENCOUNTER 2024-02-25 07:38 | Day surgery (SDC) | payer MEDICARE, OTHER, SELFPAY ==
[2024-02-25] VITALS (10 sets, daily range): BP systolic 87–132; BP diastolic 58–106; BMI 25.2
--- NOTE | 2024-02-25 11:00 | ITS.CL.PACE ---
Perforator Loader - Pacemaker Implant
Pacemaker Implant
Procedure Report:
PACEMAKER IMPLANT REPORT
Primary Care Provider: Dr Job Cifuentes
Primary railroad dispatcher: Dr Brock Cano
Date of Procedure: February 25, 2024
Procedure:
Implantation of single-chamber permanent pacemaker utilizing the left bundle branch for conduction system pacing
Indication/Diagnosis:
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
There have been multiple attempts at rhythm control which have been unsuccessful. Rate control has also been difficult due to inability to tolerate higher doses of AV yokasta blocking agents. She is therefore referred for implantation of a
single-chamber permanent pacemaker and potential up titration of AV yokasta blocking agents with consideration for AV yokasta ablation in the future.
Patient describes to me that she is no longer interested in rhythm control options, she is not interested in any further attempts at cardioversion.
After informed consent was obtained, 'time out' was called and confirmed, the patient was prepped and draped in a sterile fashion. Lidocaine with epi was used for local anesthesia. Central venous access was obtained via subclavian venipuncture. An
incision was made along the left chest and a pre-pectoral pocket was formed. Using a Seldinger technique and peel-away sheaths, the pacing leads were placed under fluoroscopic guidance.
Fluoroscopy was used to determine likely anatomic site for left bundle branch pacing. The Medtronic C315 sheath was used to deliver the Medtronic 3830 Selectsecure pacing lead with the helix exposed just exposed from the sheath tip during continuous
monitoring when pacemapping the septum during gentle clockwise rotation to obtain a paced QRS morphology of a W pattern in lead V1. Once the suspected optimal site was identified, lead deployment was performed with several rapid rotations as paced
QRS morphology was intermittently monitored until a paced QRS complex in lead V1 demonstrated development of an R wave (Qr).
Stable VEgm injury current is present throughout final lead position including at end of case, suggesting there was no perforation through the septum into the LV cavity.
Final unipolar pacing impedance is 1100 Ohms
Unipolar pacing threshold is stable at 1 V @ 0.4 ms.
LVAT is 85 ms and peak V5 -> peak V1 timing is 31 ms
Once testing (see below) showed adequate and stable function, the leads were secured using the suture sleeves. The pocket was liberally irrigated with antibiotic solution. The leads were connected to the generator header and the leads and
generator were placed within the pocket. Fluoroscopy confirmed stable lead position. The pocket was closed in the typical fashion.
IMPLANTS:
Medtronic [id number], SN: [id number], Left Pectoral
RV: Medtronic 3830 , SN:[id number], Interventricular septum at LBB
DEVICE TESTING:
Sensing: RV 7.4 mV
Capture: RV 0.75 V@0.4ms
Ohms: RV 950 (bipolar)
FINAL PROGRAMMING
Lius Pacing: VVIR 60-130 ppm
COMPLICATIONS:
None
CONCLUSIONS:
1: Successful implant of single chamber permanent pacemaker utilizing Left Bundle Branch conduction system capture for pacing.
RECOMMENDATIONS:
1. Post-op care (tele, CXR, IV abx)
2. In-Office wound check in 5-7 days
Copy to:
Dr Job Cifuentes
Dr Brock Cano
--- NOTE | 2024-02-25 12:25 | PTCARENOTE ---
Rec'd report from Jess in the EP lab; Rec'd pt AAOX3 w/no c/o CP or SOB. Pt's VS stable on arrival to the floor w/HR 80's, BP 116/76. Pt is currently Afib w/occas V paced beats on telemetry monitoring. Pt's L chest wall PPM site w/dressing C/D/I,
immobilizer in place, & no signs or symptoms of bleeding or hematoma. Pt positioned for comfort, EKG post PPM done, & pt w/call alejandre within reach. Plan of care ongoing.
--- NOTE | 2024-02-25 15:25 | CM ---
spoke with pty in room, she is prev indep, lives alone in a 1 story home with 1 step to enter she denies any dc planning needs or dme's. plan is for dc to home when medically stable.
[2024-02-25] MEDS: TYLENOL 650 MG PO ×2 (15:40→19:33)
[2024-02-25] MEDS: FLUSH (NSS) 2 FLUSH IV (18:28)
[2024-02-25] MEDS: ANCEF 5 IV (18:28)
[2024-02-25] MEDS: BUMEX 1 MG PO (19:30)
[2024-02-25] MEDS: COLACE 100 MG PO (19:30)
[2024-02-25] MEDS: COZAAR 50 MG PO (19:31)
[2024-02-25] MEDS: TIMOPTIC 0.5% OPHTHALMIC SOLUTION 1 DROP BOTH EYES (19:31)
[2024-02-25] MEDS: LIPITOR 10 MG PO (22:55)
--- NOTE | 2024-02-26 00:16 | PTCARENOTE ---
Pt rec'd at change of shift awake,alert c/o minimal pain at pacer site. Left ant chest pacer site with DDI no active hematoma noted. immobilizer in use.
Tylenol given for discomfort with relief per pt. Assisted to bathroom to void,gait steady.
Afib on telemetry with few V paced beats noted. B/p at HS 87/58 HS dose of Lopressor held.
[2024-02-26] MEDS: ANCEF 5 IV (02:58)
[2024-02-26 03:01] VITALS: BP 86/58
[2024-02-26] MEDS: TYLENOL 650 MG PO ×2 (03:04→08:59)
[2024-02-26 03:08] VITALS: BMI 25.4
[2024-02-26 03:37] LABS: Hematocrit 33.1 % (37.0-47.0); Hemoglobin 11.4 g/dL (12.0-16.0); Mean Corp Hgb Conc. 34.4 g/dL (33.0-37.0); Mean Corpuscular Hgb 31.7 pg (27.0-31.0); Mean Corpuscular Volume 91.9 fL (81.0-99.0); Mean Platelet Volume 9.4 fL (7.4-10.4); Platelet Count 210 10^3/uL (130-400); Red Cell Dist. Width 13.1 % (11.5-14.5)
[2024-02-26 04:02] LABS: Blood Urea Nitrogen 30 mg/dl (7-17); Calcium 9.1 mg/dl (8.4-10.2); Carbon Dioxide 26 mmol/L (22-30); Chloride 101 mmol/L (98-107); Estimated Creatinine Clearance 37 ml/min; Glucose 100 mg/dl (70-99); Magnesium 2.6 mg/dl (1.6-2.3); Potassium 4.4 mmol/L (3.5-5.1); Sodium 138 mmol/L (135-145); eGFR 46.91
--- NOTE | 2024-02-26 04:10 | PTCARENOTE ---
Pt's systolic b/p remains low 86/58, pt asympt. assisted to bathroom to void with no c/o feeling dizzy. remains in controlled afib with occ v pacing noted
[2024-02-26] MEDS: SYNTHROID 50 MCG PO (06:37)
--- NOTE | 2024-02-26 08:15 | PTCARENOTE ---
Assumed care of pt from prev nsg shift; Pt AAOX3 & ambulating freely in the rm. Pt's VS stable this AM w/HR in the 80-90's at rest & in the low 100's w/activity. Pt's BP 129/85. Pt is Afib w/occas Vpaced beats on telemetry monitoring. Pt w/L chest
wall antibiotic dressing intact w/small area of shadowing marked by [employer] SPECIALIST. Pt w/LUE immobilizer off & UE restrictions discussed w/pt. Pt anticipating D/C today. No addtl needs at this time.
[2024-02-26 08:38] VITALS: BP 129/85
[2024-02-26] MEDS: FARXIGA 10 MG PO (08:52)
[2024-02-26] MEDS: ZOVIRAX 200 MG PO (08:52)
[2024-02-26] MEDS: COLACE 100 MG PO (08:52)
[2024-02-26] MEDS: TIMOPTIC 0.5% OPHTHALMIC SOLUTION 1 DROP BOTH EYES (08:53)
--- NOTE | 2024-02-26 08:54 | W.PN.CARDCBS ---
Today's Communication / Plan
-
post device, pain controlled with tylenol
adjust meds for hypotension
resume OAC tonight
outpt eval for future AVN ablation in 4-6 weeks
Impression / Plan
-
Primary Care Provider: Dr Job Cifuentes
Primary wood cut engraver: Dr Brock Cano
Impression:
Symptomatic bradycardia
Tachy-abdulaziz syndrome
post single chamber LBB pacemaker implant 02/25/24
Persistent Afib prior PVI 2020, 08/2023
HTN
CKD3b
HLD
chronic HFpEF 60%
LIMA/CPAP
Diverticulosis
Anxiety
Plan:
post device site with some old drainage
tele Afib with occ Vpacing
CXR no PTX, lead in position
mild incisional pain, well controlled with tylenol
BP low o/n
Will decrease losartan to 25mg daily
Decrease metoprolol xl 50mg daily
Resume OAC Xarelto tonight
Activity restrictions reviewed
Inc check and f/u with Dr. Cano 1 week
Plan for possible AVN ablation in future as pt not interested in further rhythm control options or cardioversion
Stable for d/c home if bp improved
Progress Note - Data Conversion Developer
Subjective
Date of Service: February 26, 2024
mild inc pain improved with tylenol, no sob
Objective
Labs:
02/26/24 03:15
02/26/24 03:15
Labs
Hgb 11.4 g/dL (12.0-16.0) L 02/26/24 03:15
Hct 33.1 % (37.0-47.0) L 02/26/24 03:15
Plt Count 210 10^3/uL (130-400) 02/26/24 03:15
Sodium 138 mmol/L (135-145) 02/26/24 03:15
Potassium 4.4 mmol/L (3.5-5.1) 02/26/24 03:15
BUN 30 mg/dl (7-17) H 02/26/24 03:15
Creatinine 1.2 mg/dL (0.6-1.0) H 02/26/24 03:15
Glucose 100 mg/dl (70-99) H 02/26/24 03:15
Vital Signs and I&O:
Vital Signs
Temp Pulse Resp BP Pulse Ox
98.2 F 101 16 129/85 98
02/26/24 08:40 02/26/24 08:38 02/26/24 08:40 02/26/24 08:38 02/26/24 08:40
Vital Signs
Temp Pulse Resp BP Pulse Ox
98.2 F 101 16 129/85 98
02/26/24 08:40 02/26/24 08:38 02/26/24 08:40 02/26/24 08:38 02/26/24 08:40
Intake & Output
02/24/24 02/25/24 02/26/24 02/27/24
06:59 06:59 06:59 06:59
Intake Total 240 / 240
Balance 240 / 240
Physical Exam
Physical Exam
NAD, AOX3
S1, S2, irreg irreg
CTAB, non labored, no wheeze
SNTND Bsx4
L CW Aquacel dressing with marked old drainage, no HT
pressure dressing removed
[2024-02-26] MEDS: TOPROL XL 50 MG PO (08:57)
--- NOTE | 2024-02-26 11:07 | PTCARENOTE ---
Pt's IV line & telemetry pack removed. D/C instructions discussed w/pt, especially LUE restrictions r/t new PPM. Pt verbalized her understanding. 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 Pt escorted out via WC by staff w/mabel smith
driving pt home.
--- NOTE | 2024-02-26 15:34 | W.DS.TRANS ---
DC Summary - Professional [employer]
-
Discharge Instructions:
Discharge Diagnosis/Procedures Pacemaker implant
Diet Low Cholesterol,2 Gram Sodium
Driving Restrictions No driving for 1 week
Bathing Restrictions OK to Shower
Instructions:
Stand-Alone Forms: DC Inst - Implanted Device
Changes to Home Medications: Yes
Discharge Medications:
DC Medications w/original date entered in [employer]
alprazolam 0.25 mg tablet 0.25 mg PO BIDPRN PRN anxiety 03/03/21
cetirizine 10 mg tablet 10 mg PO DAILY Allergies 03/03/21
rivaroxaban 20 mg tablet (Xarelto) 20 mg PO HS Blood clot prevention/tx 03/03/21
timolol maleate 0.5 % eye drops 1 drp BOTH EYES BID Eye condition 03/03/21
atorvastatin 10 mg tablet 10 mg PO HS 08/15/23
bumetanide 1 mg tablet 1 mg PO BID 08/15/23
coQ10 (ubiquinol) 100 mg capsule 100 mg PO HS 08/15/23
dapagliflozin propanediol 10 mg tablet (Farxiga) 10 mg PO DAILY 08/15/23
docusate sodium 100 mg capsule (Colace) 100 mg PO BID 08/15/23
levothyroxine 50 mcg tablet 50 mcg PO DAILY 08/15/23
multivitamin 1 tab PO DAILY 08/15/23
acyclovir 200 mg capsule 200 mg PO DAILY 08/21/23
bisacodyl 5 mg tablet,delayed release (Dulcolax (bisacodyl)) 5 mg PO DAILYPRN PRN constipation 08/21/23
losartan 50 mg tablet 25 mg (1/2 x 50 mg) PO DAILY #0 tabs 02/26/24
metoprolol succinate 50 mg tablet,extended release 24 hr 50 mg PO HS Heart disease/condition #0 tabs 02/26/24
Home Medication Changes
decrease losartan to 25mg daily and decrease metoprolol from 75 to 50mg daily
Pending Results: No
== END 2024-02-26 11:10 | disposition home or self-care (01) ==
LOC: CATH 07:38
PROVIDERS: Nurse Practitioner Adult Health; ATTENDING PHYSICIAN Internal Medicine Cardiovascular Disease; FAMILY PHYSICIAN Internal Medicine; OTHER PHYSICIAN Internal Medicine Cardiovascular Disease
DX: I49.5 Sick sinus syndrome (principal); I48.19 Other persistent atrial fibrillation; I13.0 Hypertensive heart and chronic kidney disease with heart failure and stage 1 through stage 4 chronic kidney disease, or unspecified chronic kidney disease; N18.32 Chronic kidney disease, stage 3b; I50.32 Chronic diastolic (congestive) heart failure; E78.5 Hyperlipidemia, unspecified; G47.33 Obstructive sleep apnea (adult) (pediatric)
CPT/HCPCS: 33207; C1769; C1892; C1887; 71045; 80048; 83735; 85027; 93005; C1786; C1898; Q9967

== ENCOUNTER → 2024-05-16 10:26 | Outpatient (REF) | payer MEDICARE, OTHER, SELFPAY | LOC: RCS 10:26 | PROVIDERS: ATTENDING PHYSICIAN Nurse Practitioner; FAMILY PHYSICIAN Internal Medicine | DX: I48.91 Unspecified atrial fibrillation (principal) | CPT/HCPCS: 93306; 93356 ==

== ENCOUNTER → 2024-05-26 08:00 | Outpatient (REF) | payer MEDICARE, OTHER, SELFPAY | LOC: MRI 08:00 | PROVIDERS: ATTENDING PHYSICIAN Internal Medicine Cardiovascular Disease; FAMILY PHYSICIAN Internal Medicine | DX: I48.91 Unspecified atrial fibrillation (principal); R53.82 Chronic fatigue, unspecified; I38 Endocarditis, valve unspecified; I50.32 Chronic diastolic (congestive) heart failure | CPT/HCPCS: 75561; 75565; A9585 ==

== ENCOUNTER → 2024-09-28 09:58 | Outpatient (REF) | payer MEDICARE, OTHER, SELFPAY ==
[2024-09-28 11:41] LABS: INR 1.64; PT 19.7 Sec (11.4-14.6)
[2024-09-28 11:44] LABS: % Eosinophils 5.6 % (0-6); % Immature Granulocytes 0.2 % (0-0.5); % Lymphocytes 27.2 % (20.5-51.1); % Monocytes 13.3 % (1.7-9.3); % Neutrophils 52.7 % (42.2-75.2); Absolute Basophils 0.1 10^3/uL (0-0.2); Absolute Eosinophils 0.3 10^3/uL (0-0.7); Absolute Lymphocytes 1.6 10^3/uL (1.2-3.4); Absolute Monocytes 0.8 10^3/uL (0.1-0.6); Absolute Neutrophils 3.1 10^3/uL (1.4-6.5); Hematocrit 39.3 % (37.0-47.0); Hemoglobin 13.1 g/dL (12.0-16.0); Mean Corp Hgb Conc. 33.3 g/dL (33.0-37.0); Mean Corpuscular Hgb 30.6 pg (27.0-31.0); Mean Corpuscular Volume 91.8 fL (81.0-99.0); Mean Platelet Volume 9.8 fL (7.4-10.4); Nucleated Red Blood Cells % 0 %; Platelet Count 246 10^3/uL (130-400); Red Blood Cell Count 4.28 10^6/uL (4.20-5.40); Red Cell Dist. Width 13.7 % (11.5-14.5); White Blood Cell Count 5.9 10^3/uL (4.8-10.8)
[2024-09-28 12:02] LABS: ALT (SGPT) 16 U/L (0-35); AST (SGOT) 19 U/L (14-36); Albumin 4.5 g/dl (3.5-5.0); Alkaline Phosphatase 87 U/L (38-126); Blood Urea Nitrogen 22 mg/dl (7-17); Calcium 9.8 mg/dl (8.4-10.2); Carbon Dioxide 32 mmol/L (22-30); Chloride 101 mmol/L (98-107); Glucose 105 mg/dl (70-99); Magnesium 2.6 mg/dl (1.6-2.3); Potassium 4.4 mmol/L (3.5-5.1); Sodium 141 mmol/L (135-145); Total Bilirubin 0.9 mg/dl (0.2-1.3); Total Protein 7.2 g/dl (6.3-8.2); eGFR 58.02
== END ==
LOC: SDSPAT 09:58
PROVIDERS: ATTENDING PHYSICIAN Internal Medicine Cardiovascular Disease; FAMILY PHYSICIAN Internal Medicine; OTHER PHYSICIAN Internal Medicine Cardiovascular Disease
DX: I48.19 Other persistent atrial fibrillation (principal); I50.32 Chronic diastolic (congestive) heart failure
CPT/HCPCS: 36415; 80053; 83735; 85025; 85610; 93005

== ENCOUNTER 2024-10-06 10:37 | Day surgery (SDC) | payer MEDICARE, OTHER, SELFPAY ==
[2024-09-28 10:27] VITALS: BMI 27.2
[2024-10-06] VITALS (13 sets, daily range): BP systolic 101–126; BP diastolic 62–97; BMI 27.2
--- NOTE | 2024-10-06 13:39 | ITS.CL.ABL ---
[facility]
Ablation
Procedure Report:
ELECTROPHYSIOLOGY ABLATION REPORT
Date of procedure: October 06, 2024
Referring: Dr. Brock Cano
INDICATION: Elevated atrial fibrillation rates refractory to medication therapy which is unsuccessful in controlling rates as well as limited in side effect profile.
HISTORY:
Prior pulm vein isolation as well as left posterior wall isolation and the patient has ongoing arrhythmia. A single-chamber pacemaker was placed in February 2024 with conduction system the 3030 Medtronic.
'TIME-OUT':��called and��confirmed.
SEDATION/ANESTHESIA:
PROCEDURE:
(1) The device Medtronic single-chamber pacemaker was interrogated and reprogrammed to VVI@50 ppm.
(2) under direct ultrasound guidance the right femoral vein was accessed and an 8 Guamanian short sheath was placed. Over a long wire and using great care to avoid the recently placed pacemaker the 10 Guamanian steerable sheath was brought to the right
atrium and exchanged for the 8 [place]amanian short sheath. A deflectable-tip
mapping/ablation catheter was advanced to the medial tricuspid annulus region where a��HIS potential identified with a small atrial signal and larger ventricular signal.��The catheter was slightly withdrawn from this location to a site more
proximal, about longterm between the HIS recording position and that of the coronary sinus os.��At this location, a small HIS potential was evident along with large amplitude atrial deflections and a relatively small ventricular electrogram.��
Radiofrequency energy was applied at this site using a temperature-controlledsystem.��For seconds after the onset of power delivery, an accelerated junctional rhythm occurred followed by deceleration and heart block.��This RF application (max power
set: 60 W, Max temperature ���set: 52 degrees was continued for 30 seconds.� A total of 2 minutes of radiofrequency energy was delivered�at the conclusion of this, no escape rhythm was noted.
(3) The single-chamber pacemaker was interrogated and found to have stable function compared to the pre-ablation findings.��
Device: Medtronic
RV: 663 ohms, 8 mV sensing, 1.0@0.5 ms capture threshold
Pacing reprogrammed to VVIR@80�130 ppm.��
COMPLICATIONS: None
SUMMARY: Status post AV junction ablation and final programming of VVIR 80 to 130 bpm and stable lead parameters.
RECOMMENDATIONS:
1. Out of bed in 4 hours and anticipate discharge on October 07
2. Lower metoprolol 25 mg daily
Copy to: Dr. Blayne Cano
--- NOTE | 2024-10-06 14:30 | PTCARENOTE ---
Received pt post AV Sravani ablation. VSS, GCS 15. Right groin site w/ FOE sutures intact. Old drainage noted at right groin dressing and marked. Pt denies any discomfort. Post op orders noted.
[2024-10-06] MEDS: BUMEX 2 MG PO (18:23)
--- NOTE | 2024-10-06 19:03 | PTCARENOTE ---
Right groin FOE sutures clipped at 1740. After 30 minutes of bedrest, pt ambulated to bathroom. Right groin site remains intact. Will monitor.
[2024-10-06] MEDS: TOPROL XL 25 MG PO (19:32)
[2024-10-06] MEDS: TIMOPTIC 0.5% OPHTHALMIC SOLUTION 1 DROP BOTH EYES (19:32)
[2024-10-06] MEDS: LIPITOR 20 MG PO (22:02)
[2024-10-06] MEDS: XARELTO 20 MG PO (22:02)
[2024-10-06] MEDS: COLACE 100 MG PO (22:02)
--- NOTE | 2024-10-06 22:10 | PTCARENOTE ---
Received pt at change of shift OOB in chair. Tele monitor shows v-paced, HR in the 80's. pt denies any chest pain or SOB. Right groin site C.D.I. No bleeding or hematoma noted at this time. Call alejandre within reach.
[2024-10-07 04:16] VITALS: BP 101/70
[2024-10-07 04:30] VITALS: BMI 27.7
[2024-10-07] MEDS: SYNTHROID 50 MCG PO (04:35)
--- NOTE | 2024-10-07 04:55 | DOWNTIME ---
There was a [employer] Client Assessment Nurse Practitioner Downtime on 10/06/2024 from 0100 to 10/07/2024 at 0415. Downtime documentation of patient's care, including medication administrations, has been reconciled in the electronic record per guidelines. Refer to the
patient's paper chart under the miscellaneous tab to see printed paper medication records and downtime forms.
[2024-10-07 05:18] LABS: Hemoglobin 11.6 g/dL (12.0-16.0); Mean Corp Hgb Conc. 34.1 g/dL (33.0-37.0); Mean Corpuscular Hgb 30.9 pg (27.0-31.0); Mean Corpuscular Volume 90.7 fL (81.0-99.0); Mean Platelet Volume 9.4 fL (7.4-10.4); Platelet Count 215 10^3/uL (130-400); Red Blood Cell Count 3.75 10^6/uL (4.20-5.40); Red Cell Dist. Width 13.3 % (11.5-14.5); White Blood Cell Count 5.9 10^3/uL (4.8-10.8)
[2024-10-07 05:52] LABS: Blood Urea Nitrogen 22 mg/dl (7-17); Calcium 9.3 mg/dl (8.4-10.2); Carbon Dioxide 28 mmol/L (22-30); Chloride 104 mmol/L (98-107); Estimated Creatinine Clearance 49 ml/min; Glucose 103 mg/dl (70-99); Potassium 4.6 mmol/L (3.5-5.1); Sodium 139 mmol/L (135-145); eGFR > 60.00
--- NOTE | 2024-10-07 07:46 | W.PN.CARDCBS ---
Addendum entered and electronically signed by Brock Cano MD 10/07/24 09:36:
Patient seen and examined
Agree with HOME HEALTH CARE WORKER note and assessment
Agree with HOME HEALTH CARE WORKER plan
Exam:
As per HOME HEALTH CARE WORKER note
Alert and x 3
Nonfocal neurologically
JVP 6
Cor regular
Appropriate conduction system pacing on telemetry at 80 bpm
Underlying atrial fibrillation
PCP: Job Cifuentes MD
CDY: Brock Cano MD
Impression:
Persistent Afib prior PVI 2020, 08/2023
Symptomatic bradycardia
Tachy-abdulaziz syndrome
single chamber LBB pacemaker implant 02/25/24
post AVJ ablation 10/06/24
HTN
CKD3b
HLD
chronic HFpEF 60%
LIMA/CPAP
Diverticulosis
Anxiety
Plan:
post ablation feels good
tele Vpaced
groin stable
OAC Xarelto
Will decrease metoprolol xl 25mg bid and wean as tolerated as oupt for medication fatigue. Ultimately 25 mg daily may be the appropriate dose
HF continue farxiga, bumex, metoprolol xl
ACtivity restrictions reviewed
f/u DCA 1 mo
home today
Original Note:
Today's Communication / Plan
-
post AVJ ablation
stable for d/c home
Impression / Plan
-
PCP: Job Cifuentes MD
CDY: Brock Cano MD
Impression:
Persistent Afib prior PVI 2020, 08/2023
Symptomatic bradycardia
Tachy-abdulaziz syndrome
single chamber LBB pacemaker implant 02/25/24
post AVJ ablation 10/06/24
HTN
CKD3b
HLD
chronic HFpEF 60%
LIMA/CPAP
Diverticulosis
Anxiety
Plan:
post ablation feels good
tele Vpaced
groin stable
OAC Xarelto
Will decrease metoprolol xl 25mg bid and wean as tolerated as oupt for medication fatigue
HF continue farxiga, bumex, metoprolol xl
ACtivity restrictions reviewed
f/u DCA 1 mo
home today
Progress Note - Savings Counselor
Subjective
Date of Service: October 07, 2024
denies cp, sob
Objective
Labs:
10/07/24 04:28
10/07/24 04:28
Labs
Hgb 11.6 g/dL (12.0-16.0) L 10/07/24 04:28
Hct 34.0 % (37.0-47.0) L 10/07/24 04:28
Plt Count 215 10^3/uL (130-400) 10/07/24 04:28
Sodium 139 mmol/L (135-145) 10/07/24 04:28
Potassium 4.6 mmol/L (3.5-5.1) 10/07/24 04:28
BUN 22 mg/dl (7-17) H 10/07/24 04:28
Creatinine 0.9 mg/dL (0.6-1.0) 10/07/24 04:28
Glucose 103 mg/dl (70-99) H 10/07/24 04:28
Vital Signs and I&O:
Vital Signs
Temp Pulse Resp BP Pulse Ox
97.9 F 82 18 101/70 96
10/07/24 04:16 10/07/24 05:00 10/07/24 04:16 10/07/24 04:16 10/07/24 04:16
Vital Signs
Temp Pulse Resp BP Pulse Ox
97.9 F 82 18 101/70 96
10/07/24 04:16 10/07/24 05:00 10/07/24 04:16 10/07/24 04:16 10/07/24 04:16
Intake & Output
10/05/24 10/06/24 10/07/24 10/08/24
06:59 06:59 06:59 06:59
Intake Total 480 / 480
Balance 480 / 480
Physical Exam
Physical Exam
NAD< AOX3
S1, S2, RRR, 1/6 JEAN-PAUL
CTAB, non labored
SNTND bsx4
R fem site c/d/i no HT, soft
[2024-10-07 08:10] VITALS: BP 113/73
--- NOTE | 2024-10-07 08:17 | PTCARENOTE ---
Received patient this morning resting in bed, patient seen by Dr. Cano earlier this morning. Right groin dressing is dry and intact, patient offers no complaints, hoping to go home later today.
[2024-10-07] MEDS: TIMOPTIC 0.5% OPHTHALMIC SOLUTION 1 DROP BOTH EYES (09:12)
[2024-10-07] MEDS: FARXIGA 10 MG PO (09:12)
[2024-10-07] MEDS: COLACE 200 MG PO (09:12)
[2024-10-07] MEDS: BUMEX 2 MG PO (09:12)
[2024-10-07] MEDS: KCL 20 MEQ PO (09:12)
[2024-10-07] MEDS: ZOVIRAX 200 MG PO (09:13)
[2024-10-07] MEDS: TOPROL XL 25 MG PO (09:13)
[2024-10-07] MEDS: ZYRTEC 10 MG PO (09:13)
--- NOTE | 2024-10-07 09:39 | CM ---
Reviewed chart. Met with Mrs. Jesus to review discharge plans. She states she is feeling well and maybe able to go home soon. She states prior to admission she resides alone in a one story home with one step to enter. She states prior to
admission she was independent with ambulation and adls. She states she has a CPAP Machine at home and no other DME. She states she has a prescription plan and uses [facility]. The discharge plan is to return home when medically stable.
--- NOTE | 2024-10-07 10:00 | W.DS.TRANS ---
DC Summary - Galley Cook
-
Discharge Instructions:
Discharge Diagnosis/Procedures AVJ ablation
Diet Low Cholesterol
Driving Restrictions No driving for 24 hours
Instructions:
Stand-Alone Forms: DC Instructions- Cath/EP Lab
Changes to Home Medications: Yes
Discharge Medications:
DC Medications w/original date entered in [employer]
alprazolam 0.25 mg tablet 0.25 mg PO PRN PRN anxiety 03/03/21
rivaroxaban 20 mg tablet (Xarelto) 20 mg PO HS Blood clot prevention/tx 03/03/21
coQ10 (ubiquinol) 100 mg capsule 100 mg PO HS 08/15/23
dapagliflozin propanediol 10 mg tablet (Farxiga) 10 mg PO DAILY 08/15/23
docusate sodium 100 mg capsule (Colace) 100 mg PO HS 08/15/23
levothyroxine 50 mcg tablet 50 mcg PO DAILY 08/15/23
acyclovir 200 mg capsule 200 mg PO DAILY 08/21/23
atorvastatin 20 mg tablet 20 mg PO HS 09/24/24
bumetanide 2 mg tablet 2 mg PO BID 09/24/24
cetirizine 10 mg tablet (Zyrtec) 10 mg PO DAILY 09/24/24
docusate sodium 100 mg capsule (Colace) 200 mg PO DAILY 09/24/24
potassium chloride 20 mEq tablet,extended release 20 meq PO DAILY 09/24/24
soluble corn fiber-inulin 1.7 gram chewable tablet (Metamucil (inulin-corn fiber)) 4 tab PO BID 09/24/24
timolol maleate 0.5 % eye drops 1 drp ophthalmic (eye) BID 09/24/24
cholecalciferol (vitamin D3) 50 mcg (2,000 unit) tablet (Vitamin D3) 50 mcg PO DAILY 10/06/24
metoprolol succinate 50 mg tablet,extended release 24 hr 25 mg (1/2 x 50 mg) PO BID Heart disease/condition #0 tabs 10/07/24
Home Medication Changes
decrease metoprolol to 25mg bid from 50 bid
Pending Results: No
--- NOTE | 2024-10-07 10:00 | PTCARENOTE ---
Patient is ok for discharge home. Reviewed discharge instructions, medication changes and follow up appointment with the patient and she states her understanding. Patient discharged home with her family.
== END 2024-10-07 10:01 | disposition home or self-care (01) ==
LOC: CATH 10:37
PROVIDERS: Nurse Practitioner; ATTENDING PHYSICIAN Internal Medicine Cardiovascular Disease; FAMILY PHYSICIAN Internal Medicine
DX: I48.19 Other persistent atrial fibrillation (principal); E78.5 Hyperlipidemia, unspecified; F41.9 Anxiety disorder, unspecified; G47.33 Obstructive sleep apnea (adult) (pediatric); I13.0 Hypertensive heart and chronic kidney disease with heart failure and stage 1 through stage 4 chronic kidney disease, or unspecified chronic kidney disease; I49.5 Sick sinus syndrome; I50.32 Chronic diastolic (congestive) heart failure; N18.32 Chronic kidney disease, stage 3b; Z95.0 Presence of cardiac pacemaker; K57.90 Diverticulosis of intestine, part unspecified, without perforation or abscess without bleeding; Z79.01 Long term (current) use of anticoagulants; Z79.890 Hormone replacement therapy
CPT/HCPCS: C1733; C1766; C1894; 80048; 85027; 93005; 93650